=== PATIENT | female | born 1950 | race Caucasian/White ===

== ENCOUNTER 2016-05-24 14:10 | Outpatient (CLI) | payer MEDICARE ==
[2016-05-24 14:31] LABS: #Basophils 0.1 thou/uL (0.0-0.2); #Lymphocytes 1.4 thou/uL (1.20-3.40); #Monocytes 0.5 thou/uL (0.11-0.59); #Neutrophils 7.2 thou/uL (1.40-6.50); %Basophils 1.1 % (0.0-1.0); %Eosinophils 0.3 % (0.0-10.0); %Lymphocytes 15.3 % (21.0-51.0); %Monocytes 5.8 % (0.0-10.0); %Neutrophils 77.5 % (42.0-75.0); Hemoglobin 13.9 g/dL (12.0-16.0); Mean Corpuscular HGB CONC 34.4 g/dL (32.0-36.0); Mean Platelet Volume 8.2 fL (7.4-10.4); Platelet Count 278 thou/uL (130-400); RBC Distribution Width 12.3 % (11.5-14.5); Red Blood Cell (RBC) Count 4.21 mill/uL (4.20-5.40); White Blood Cell (WBC) Count 9.3 thou/uL (4.8-10.8)
[2016-05-24 14:44] LABS: Hemoglobin A1c 5.5 % (4.0-6.0)
[2016-05-24 14:49] LABS: ALT (SGPT) 16 U/L (0-55); AST (SGOT) 16 U/L (5-34); Albumin 4.1 g/dL (3.4-4.8); Alkaline Phosphatase 99 U/L (40-150); Anion Gap 20 mmol/L (10-20); BUN (Urea Nitrogen) 7 mg/dL (9.8-20.1); Bilirubin, Total 0.3 mg/dL (0.2-1.2); Calc. Creatinine Clearance 0 mL/min (70-130); Calcium 8.8 mg/dL (7.8-10.44); Carbon Dioxide 22 mmol/L (23-31); Chloride 96 mmol/L (98-107); Estimated GFR-MDRD 77; Glucose 141 mg/dL (80-115); Lipase 13 U/L (8-78); Potassium 4.1 mmol/L (3.5-5.1); Protein, Total 7.1 g/dL (5.8-8.1); Sodium 134 mmol/L (136-145)
== END 2016-05-24 14:11 | disposition home or self-care (01) ==
LOC: MADLABBHPM 14:10
PROVIDERS: ATTEND Family Medicine
DX: K86.1 Other chronic pancreatitis (principal); K86.81 Exocrine pancreatic insufficiency; I10 Essential (primary) hypertension; R73.01 Impaired fasting glucose
CPT/HCPCS: 36415; 80053; 83036; 83690; 84443; 85025

== ENCOUNTER 2016-06-29 15:25 | Emergency (ER) | payer MEDICARE, OTHER ==
--- NOTE | 2016-06-29 16:20 | RAD ---
TWO VIEWS OF THE RIGHT HUMERUS: Date: 06-29-16 Comparison: None. History: Arm pain. FINDINGS: There is mild degenerative change of the right AC joint. There is no displaced fracture. On the la teral view there is a small calcific density superior and lateral to the humeral head which may sign lisa calcific tendinosis. IMPRESSION: No acute fracture seen. POS: [facility]
== END 2016-06-29 17:00 | disposition home or self-care (01) ==
LOC: MADERS 15:25
DX: M79.621 Pain in right upper arm (principal); F17.210 Nicotine dependence, cigarettes, uncomplicated; Z79.899 Other long term (current) drug therapy

== ENCOUNTER 2016-09-29 13:17 | Emergency (ER) | payer MEDICARE ==
[~2016-09-29 13:17] MED LIST: Sodium Chloride 0.9% 1,000 ML BAG ONE
[2016-09-29 14:07] LABS: #Basophils 0.1 thou/uL (0.0-0.2); #Lymphocytes 1.2 thou/uL (1.20-3.40); #Monocytes 0.5 thou/uL (0.11-0.59); #Neutrophils 11.6 thou/uL (1.40-6.50); %Basophils 0.5 % (0.0-1.0); %Eosinophils 0.1 % (0.0-10.0); %Monocytes 3.8 % (0.0-10.0); %Neutrophils 86.7 % (42.0-75.0); Mean Corpuscular HGB CONC 35.1 g/dL (32.0-36.0); Mean Corpuscular Hemoglobin 32.9 pg (27.0-31.0); Mean Corpuscular Volume 93.7 fl (81.0-99.0); Mean Platelet Volume 9.2 fL (7.4-10.4); Platelet Count 206 thou/uL (130-400); RBC Distribution Width 12.8 % (11.5-14.5); Red Blood Cell (RBC) Count 4.26 mill/uL (4.20-5.40); White Blood Cell (WBC) Count 13.4 thou/uL (4.8-10.8)
[2016-09-29] MEDS ORDERED: Ondansetron HCl/PF 4 MG/2 ML Vial ONE (14:07)
[2016-09-29] MEDS ORDERED: Morphine Sulfate 2 MG/ML SYRINGE ONE (14:07)
[2016-09-29 14:25] LABS: ALT (SGPT) 20 U/L (8-55); AST (SGOT) 18 U/L (5-34); Albumin 3.8 g/dL (3.4-4.8); Alkaline Phosphatase 113 U/L (40-150); Anion Gap 16 mmol/L (10-20); BUN (Urea Nitrogen) 7 mg/dL (9.8-20.1); Bilirubin, Total 0.3 mg/dL (0.2-1.2); Calc. Creatinine Clearance 0 mL/min (70-130); Calcium 8.6 mg/dL (7.8-10.44); Carbon Dioxide 24 mmol/L (23-31); Chloride 95 mmol/L (98-107); Estimated GFR-MDRD Greater than 90; Globulin 2.8 g/dL (2.4-3.5); Glucose 181 mg/dL (80-115); Lipase 793 U/L (8-78); Potassium 3.8 mmol/L (3.5-5.1); Protein, Total 6.6 g/dL (6.0-8.3); Sodium 131 mmol/L (136-145)
--- NOTE | 2016-09-29 15:00 | RAD ---
CHEST ONE VIEW AND ABDOMEN TWO VIEWS: HISTORY: Nausea and vomiting. FINDINGS/IMPRESSION: The heart size is borderline. There is elevation of the right hemidiaphragm. No confluent areas of consolidation, pneumothorax, gurvinder pleural edema, or pleural effusions are seen. No free air or fl uid levels are identified. A non-obstructive bowel gas pattern is present. There are degenerative changes in the spine. No suspicious calcifications are identified. POS: [facility]
[2016-09-29 15:25] LABS: Bilirubin Negative (Negative); Blood, Urine Trace (Negative); Clarity Hazy (Clear); Glucose, Urine (Dipstick) Negative (Negative); Icto Negative (Negative); Leukocyte Negative (Negative); Nitrite Negative (Negative); Protein, Urine (Dipstick) Negative (Neg-Trace)
[2016-09-29 15:26] LABS: Bacteria/HPF 2+ HPF (None Seen); RBC/HPF 0-3 HPF (0-3); WBC/HPF 0-3 HPF (0-3)
== END 2016-09-29 15:24 | disposition short-term general hospital (02) ==
LOC: MADERS 13:17
DX: K85.90 Acute pancreatitis without necrosis or infection, unspecified (principal); K86.1 Other chronic pancreatitis; F17.210 Nicotine dependence, cigarettes, uncomplicated; Z79.899 Other long term (current) drug therapy
CPT/HCPCS: 36415; 74022; 80053; 81003; 81015; 83690; 85025; 93005; 96361; 96374; 96375; J1170; J2270; J2405; J7050

== ENCOUNTER 2016-10-13 07:09 | Emergency (ER) | payer MEDICARE ==
--- NOTE | 2016-10-13 08:11 | RAD ---
FRONTAL VIEW CHEST: INDICATION: Dyspnea. FINDINGS: There is enlargement of the cardiac silhouette and prominence of the pulmonary vasculature with bila teral pulmonary edema. Mild left pleural fluid is not excluded. No discrete pneumothorax. IMPRESSION: Evidence of decompensated congestive heart failure. Recommend followup to resolution. POS: [facility]
[2016-10-13] MEDS ORDERED: Ondansetron HCl/PF 4 MG/2 ML Vial ONE (08:23)
[2016-10-13] MEDS ORDERED: Furosemide 40 MG/4 ML VIAL ONE (08:23)
[2016-10-13] MEDS ORDERED: Ketorolac Tromethamine 30 MG/ML VIAL ONE (08:23)
[2016-10-13] MEDS ORDERED: Fentanyl 100 MCG/2 ML VIAL ONE (08:23)
[2016-10-13] MEDS ORDERED: Furosemide 20 MG/2 ML VIAL ONE (08:23)
[2016-10-13 08:34] LABS: #Eosinphils 0.2 thou/uL (0.0-0.7); #Lymphocytes 1.1 thou/uL (1.20-3.40); #Monocytes 0.6 thou/uL (0.11-0.59); #Neutrophils 5.3 thou/uL (1.40-6.50); %Basophils 0.3 % (0.0-1.0); %Eosinophils 2.5 % (0.0-10.0); %Lymphocytes 14.9 % (21.0-51.0); %Monocytes 8.8 % (0.0-10.0); %Neutrophils 73.5 % (42.0-75.0); Hemoglobin 9.7 g/dL (12.0-16.0); Mean Corpuscular HGB CONC 31.9 g/dL (32.0-36.0); Mean Corpuscular Hemoglobin 30.1 pg (27.0-31.0); Mean Corpuscular Volume 94.1 fl (81.0-99.0); Mean Platelet Volume 7.2 fL (7.4-10.4); Platelet Count 364 thou/uL (130-400); RBC Distribution Width 13.5 % (11.5-14.5); Red Blood Cell (RBC) Count 3.24 mill/uL (4.20-5.40); White Blood Cell (WBC) Count 7.2 thou/uL (4.8-10.8)
[2016-10-13 08:55] LABS: Anion Gap 15 mmol/L (10-20); BUN (Urea Nitrogen) 6 mg/dL (9.8-20.1); Calc. Creatinine Clearance 0 mL/min (70-130); Calcium 8.3 mg/dL (7.8-10.44); Carbon Dioxide 33 mmol/L (23-31); Chloride 96 mmol/L (98-107); Estimated GFR-MDRD Greater than 90; Glucose 117 mg/dL (80-115); Sodium 141 mmol/L (136-145)
[2016-10-13 08:59] LABS: Troponin I 0.014 ng/mL (< 0.028)
[2016-10-13 10:12] LABS: Potassium 2.9 mmol/L (3.5-5.1)
== END 2016-10-13 10:00 | disposition short-term general hospital (02) ==
LOC: MADERS 07:09
DX: I50.9 Heart failure, unspecified (principal); K85.90 Acute pancreatitis without necrosis or infection, unspecified; F17.210 Nicotine dependence, cigarettes, uncomplicated; Z79.899 Other long term (current) drug therapy
CPT/HCPCS: 51702; 71010; 80048; 82553; 83880; 84484; 85025; 93005; 94760; 96374; 96375; J1885; J1940; J2405; J3010

== ENCOUNTER 2016-10-20 09:09 | Outpatient (CLI) | payer MEDICARE ==
[2016-10-20 09:45] LABS: Clarity Hazy (Clear); Leukocyte Small (Negative); Nitrite Negative (Negative); Protein, Urine (Dipstick) 100 mg/dL (Neg-Trace); pH, Urine 5.5 (5.0-9.0)
[2016-10-20 09:46] LABS: Bilirubin Negative (Negative); Blood, Urine Moderate (Negative); Glucose, Urine (Dipstick) Negative (Negative); Urobilinogen 0.2 mg/dL (0.2-1.0)
[2016-10-20 09:51] LABS: Bacteria/HPF 1+ HPF (None Seen); WBC/HPF 21-50 HPF (0-3)
== END 2016-10-20 09:10 | disposition home or self-care (01) ==
LOC: MADLABBHPM 09:09
PROVIDERS: ATTEND Family Medicine
DX: R82.90 Unspecified abnormal findings in urine (principal)
CPT/HCPCS: 36415; 81001; 87077; 87086; 87186

== ENCOUNTER 2016-10-26 07:18 | Outpatient (CLI) | payer MEDICARE ==
[2016-10-26 07:55] LABS: #Basophils 0.1 thou/uL (0.0-0.2); #Eosinphils 0.4 thou/uL (0.0-0.7); #Lymphocytes 2.1 thou/uL (1.20-3.40); #Monocytes 0.8 thou/uL (0.11-0.59); #Neutrophils 5.1 thou/uL (1.40-6.50); %Basophils 1.1 % (0.0-1.0); %Eosinophils 4.5 % (0.0-10.0); %Monocytes 9.3 % (0.0-10.0); %Neutrophils 60.1 % (42.0-75.0); Hemoglobin 11.1 g/dL (12.0-16.0); Mean Corpuscular HGB CONC 32.2 g/dL (32.0-36.0); Mean Corpuscular Hemoglobin 30.2 pg (27.0-31.0); Mean Corpuscular Volume 93.9 fl (81.0-99.0); Mean Platelet Volume 8.6 fL (7.4-10.4); Platelet Count 274 thou/uL (130-400); RBC Distribution Width 12.9 % (11.5-14.5); Red Blood Cell (RBC) Count 3.67 mill/uL (4.20-5.40); White Blood Cell (WBC) Count 8.5 thou/uL (4.8-10.8)
[2016-10-26 08:24] LABS: ALT (SGPT) 28 U/L (8-55); AST (SGOT) 22 U/L (5-34); Albumin 3.5 g/dL (3.4-4.8); Alkaline Phosphatase 75 U/L (40-150); Anion Gap 16 mmol/L (10-20); BUN (Urea Nitrogen) 13 mg/dL (9.8-20.1); Bilirubin, Total Less than 0.3 mg/dL (0.2-1.2); Calc. Creatinine Clearance 0 mL/min (70-130); Calcium 8.9 mg/dL (7.8-10.44); Carbon Dioxide 32 mmol/L (23-31); Chloride 93 mmol/L (98-107); Estimated GFR-MDRD 70; Globulin 3.3 g/dL (2.4-3.5); Glucose 121 mg/dL (80-115); Lipase 35 U/L (8-78); Potassium 3.8 mmol/L (3.5-5.1); Protein, Total 6.8 g/dL (6.0-8.3); Sodium 137 mmol/L (136-145)
== END 2016-10-26 07:19 | disposition home or self-care (01) ==
LOC: MADLAB 07:18
PROVIDERS: ATTEND Nurse Practitioner Family
DX: I50.30 Unspecified diastolic (congestive) heart failure (principal); K86.1 Other chronic pancreatitis
CPT/HCPCS: 36415; 80053; 82150; 83690; 85025

== ENCOUNTER 2019-12-06 17:33 | Emergency (ER) | payer MEDICARE ==
[~2019-12-06 17:33] MED LIST changes: +Iopamidol 370 76% 100 ML VIAL ONE; +Lactated Ringer's 1,000 ML BAG ONE; -Sodium Chloride 0.9% 1,000 ML BAG ONE
[2019-12-06 18:51] LABS: #Basophils 0.1 thou/uL (0.0-0.2); #Eosinphils 0.1 thou/uL (0.0-0.7); #Lymphocytes 1.6 thou/uL (1.20-3.40); #Monocytes 0.8 thou/uL (0.11-0.59); #Neutrophils 12.4 thou/uL (1.40-6.50); %Basophils 0.6 % (0.0-1.0); %Eosinophils 0.4 % (0.0-10.0); %Lymphocytes 10.7 % (21.0-51.0); %Monocytes 5.3 % (0.0-10.0); %Neutrophils 82.9 % (42.0-75.0); Hemoglobin 11.7 g/dL (12.0-16.0); Mean Corpuscular HGB CONC 30.3 g/dL (32.0-36.0); Mean Corpuscular Hemoglobin 25.9 pg (27.0-31.0); Mean Corpuscular Volume 85.4 fL (78.0-98.0); Mean Platelet Volume 10.2 fL (7.4-10.4); Platelet Count 336 thou/uL (130-400); RBC Distribution Width 15.5 % (11.5-14.5); Red Blood Cell (RBC) Count 4.51 mill/uL (4.20-5.40); White Blood Cell (WBC) Count 14.9 thou/uL (4.8-10.8)
[2019-12-06] MEDS ORDERED: Fentanyl 100 MCG/2 ML VIAL ONE (18:59)
[2019-12-06] MEDS ORDERED: Ondansetron PF 4 MG/2 ML Vial ONE (18:59)
[2019-12-06 19:11] LABS: ALT (SGPT) 25 U/L (8-55); AST (SGOT) 17 U/L (5-34); Alkaline Phosphatase 114 U/L (40-110); Anion Gap 17 mmol/L (10-20); BUN (Urea Nitrogen) 10 mg/dL (9.8-20.1); Bilirubin, Total 0.2 mg/dL (0.2-1.2); Calc. Creatinine Clearance 0 mL/min (70-130); Calcium 8.2 mg/dL (7.8-10.44); Carbon Dioxide 36 mmol/L (23-31); Estimated GFR-MDRD 73; Globulin 3.1 g/dL (2.4-3.5); Glucose 168 mg/dL (80-115); Lipase 168 U/L (8-78); Protein, Total 6.1 g/dL (6.0-8.3)
[2019-12-06 19:19] LABS: Chloride 85 mmol/L (98-107); Potassium 3.5 mmol/L (3.5-5.1); Sodium 134 mmol/L (136-145)
--- NOTE | 2019-12-06 20:12 | CT ---
CT ABDOMEN AND PELVIS WITH CONTRAST: 12/06/19 HISTORY: Abdominal pain. COMPARISON: CT 09/12/18. FINDINGS: Mild atelectasis lung bases. Old left posterior rib fractures. Nodular contour left lobe of the liver. There is a high density tablet appearing structure within the gastric lumen. Recommend correlation wi th recent ingestion. Although this could be metal as the Hounsfield unit measures up to 1300. There appears to be some prior postsurgical changes of the gastric antrum. Inflammatory response arou nd the second portion of the duodenum and pancreatic head. Prior gastrojejunostomy. Spleen is unremarkable. No hydronephrosis. Small nodule left adrenal gland is similar. Aortic contour is nonaneurysmal. No dilated loops or large or small bowel. The appendix is mildly distended. No acu te osseous abnormality. IMPRESSION: 1. Inflammatory stranding in the anterior pararenal space along the pancreatic head and lesser s ac. Findings can be seen with pancreatitis versus less likely duodenitis. 2. Prior gastrojejunostomy and gastric antrectomy. 3. Normal appendix. 4. No evidence for bowel obstruction. 5. Very hyperdense ovoid structure within the gastric lumen. Recommend correlation with recent i ngestion. This has greater attenuation than a calcium tablet would be expected to have. 6. Continued mildly distended appendix without periappendiceal inflammation. Appendiceal tip kirsten or cannot be excluded and is new from 2010. POS: [facility]
[2019-12-06] MEDS ORDERED: Piperacillin/Tazobactam 3.375 GM VIAL ONE (20:21)
[2019-12-06] MEDS ORDERED: Sodium Chloride 0.9% 100 ML ONE (20:22)
== END 2019-12-06 21:40 | disposition home or self-care (01) ==
LOC: MADERS 17:33
DX: K85.90 Acute pancreatitis without necrosis or infection, unspecified (principal); I11.0 Hypertensive heart disease with heart failure; I50.9 Heart failure, unspecified; F17.210 Nicotine dependence, cigarettes, uncomplicated; Z79.899 Other long term (current) drug therapy
CPT/HCPCS: 36415; 74177; 80053; 83605; 83690; 84484; 85025; 86140; 93005; 96361; 96365; 96375; J2405; J2543; J3010; J3490; J7120; Q9967

== ENCOUNTER 2019-12-14 16:48 | Emergency (ER) | payer MEDICARE ==
[2019-12-14] MEDS ORDERED: Sodium Chloride 0.9% 1,000 ML ONE (17:23)
[2019-12-14] MEDS ORDERED: Pantoprazole 40 MG VIAL ONE (17:23)
[2019-12-14] MEDS ORDERED: Promethazine HCl 25 MG/ML VIAL ONE (17:23)
--- NOTE | 2019-12-14 18:05 | RAD ---
EXAM: CHEST ONE VIEW HISTORY: Chest pain COMPARISON: 10/14/2016 FINDINGS: Cardiac silhouette is within normal limits. There is mild increase in perihilar interstitial densitie s when compared to the prior exam. No consolidation or pleural fluid is seen. There is increased density overlying the right hemithorax most likely related to patient's overlying breast prosthesis. Postoperative changes left proximal humerus and right humeral head are again seen. Remote left-sided rib fractures are seen. IMPRESSION: Mild increase in perihilar interstitial densities which could be related to mild pulmonary edema or i nfectious process.
--- NOTE | 2019-12-14 18:11 | RAD ---
EXAM: XR Abdomen 1 View/KUB PROVIDED CLINICAL HISTORY: Abdominal pain. COMPARISON: 09/29/2016 FINDINGS: Bowel gas pattern is nonspecific with gaseous distention of portions of the colon as well as stomach and loops of small bowel. There is an oval-shaped radiopaque density overlying the right iliac bone. This has a similar appearance to a radiopaque density seen in the stomach on prior CT abdomen o n 12/06/2019 probably related to ingested material within bowel. The exact etiology for this density is uncertain. Phlebolith again overlies the right hemipelvis. Degenerative changes are again noted in the spine. IMPRESSION: 1. Nonspecific bowel gas pattern. 2. Oval-shaped radiopaque density overlying right iliac bone. An oval-shaped radiopaque density was s een in the stomach on prior CT abdomen on 12/06/2019. This was mentioned on the prior CT examination, and on the prior exam, this oval-shaped density demonstrated a more hyperdense appearanc e than expected for calcium tablet. Clinical correlation suggested. This finding is likely related to further migration of the previously seen radiopaque density within the bowel.
[2019-12-14 18:14] LABS: Hemoglobin 10.3 g/dL (12.0-16.0); Mean Corpuscular HGB CONC 30.7 g/dL (32.0-36.0); Mean Corpuscular Hemoglobin 25.9 pg (27.0-31.0); Mean Corpuscular Volume 84.4 fL (78.0-98.0); Red Blood Cell (RBC) Count 3.99 mill/uL (4.20-5.40); White Blood Cell (WBC) Count 10.6 thou/uL (4.8-10.8)
[2019-12-14 18:15] LABS: #Basophils 0.1 thou/uL (0.0-0.2); #Eosinphils 0.1 thou/uL (0.0-0.7); #Lymphocytes 1.7 thou/uL (1.20-3.40); #Monocytes 0.9 thou/uL (0.11-0.59); #Neutrophils 7.9 thou/uL (1.40-6.50); %Basophils 0.5 % (0.0-1.0); %Lymphocytes 15.7 % (21.0-51.0); %Monocytes 8.2 % (0.0-10.0); %Neutrophils 74.5 % (42.0-75.0); Mean Platelet Volume 8.2 fL (7.4-10.4); Platelet Count 315 thou/uL (130-400)
[2019-12-14 18:33] LABS: ALT (SGPT) 28 U/L (8-55); AST (SGOT) 22 U/L (5-34); Albumin 2.8 g/dL (3.4-4.8); Alkaline Phosphatase 108 U/L (40-110); Anion Gap 13 mmol/L (10-20); BUN (Urea Nitrogen) 5 mg/dL (9.8-20.1); Bilirubin, Total 0.2 mg/dL (0.2-1.2); Calc. Creatinine Clearance 0 mL/min (70-130); Calcium 7.6 mg/dL (7.8-10.44); Carbon Dioxide 29 mmol/L (23-31); Chloride 101 mmol/L (98-107); Estimated GFR-MDRD 85; Glucose 97 mg/dL (80-115); Potassium 3.7 mmol/L (3.5-5.1); Protein, Total 5.8 g/dL (6.0-8.3); Sodium 139 mmol/L (136-145)
[2019-12-14 18:34] LABS: CRP (Inflammatory) 2.17 mg/dL (= or < 0.5)
== END 2019-12-14 19:28 | disposition home or self-care (01) ==
LOC: MADERS 16:48
DX: K86.1 Other chronic pancreatitis (principal); R11.2 Nausea with vomiting, unspecified; K59.00 Constipation, unspecified; I11.0 Hypertensive heart disease with heart failure; I50.9 Heart failure, unspecified; F17.210 Nicotine dependence, cigarettes, uncomplicated; Z79.51 Long term (current) use of inhaled steroids; Z79.899 Other long term (current) drug therapy
CPT/HCPCS: 36415; 71045; 74018; 80053; 82150; 82550; 83690; 84484; 85025; 86140; 96365; 96375; C9113; J2550; J7050

== ENCOUNTER 2019-12-19 18:02 | Emergency (ER) | payer MEDICARE ==
[2019-12-19 18:20] LABS: Bilirubin Negative (Negative); Blood, Urine Negative (Negative); Clarity Clear (Clear); Glucose, Urine (Dipstick) Negative (Negative); Ketone, Urine Negative (Negative); Leukocyte Negative (Negative); Nitrite Negative (Negative); Protein, Urine (Dipstick) Negative (Neg-Trace); Urobilinogen 0.2 mg/dL (Less than 2); pH, Urine 6.5 (5.0-9.0)
[2019-12-19] MEDS ORDERED: Sodium Chloride 0.9% 500 ML ONE (19:34)
[2019-12-19 19:43] LABS: #Basophils 0.1 thou/uL (0.0-0.2); #Eosinphils 0.2 thou/uL (0.0-0.7); #Lymphocytes 2.2 thou/uL (1.20-3.40); #Monocytes 0.8 thou/uL (0.11-0.59); #Neutrophils 10.1 thou/uL (1.40-6.50); %Basophils 0.7 % (0.0-1.0); %Eosinophils 1.6 % (0.0-10.0); %Lymphocytes 16.6 % (21.0-51.0); %Monocytes 5.8 % (0.0-10.0); %Neutrophils 75.3 % (42.0-75.0); Hemoglobin 11.6 g/dL (12.0-16.0); Mean Corpuscular HGB CONC 30.6 g/dL (32.0-36.0); Mean Corpuscular Hemoglobin 25.7 pg (27.0-31.0); Mean Corpuscular Volume 83.8 fL (78.0-98.0); Mean Platelet Volume 8.4 fL (7.4-10.4); Platelet Count 412 thou/uL (130-400); RBC Distribution Width 15.1 % (11.5-14.5); White Blood Cell (WBC) Count 13.4 thou/uL (4.8-10.8)
[2019-12-19 19:56] LABS: ALT (SGPT) 33 U/L (8-55); AST (SGOT) 24 U/L (5-34); Albumin 3.2 g/dL (3.4-4.8); Alkaline Phosphatase 134 U/L (40-110); Anion Gap 16 mmol/L (10-20); BUN (Urea Nitrogen) 7 mg/dL (9.8-20.1); Bilirubin, Total 0.2 mg/dL (0.2-1.2); Calc. Creatinine Clearance 0 mL/min (70-130); Calcium 8.3 mg/dL (7.8-10.44); Carbon Dioxide 30 mmol/L (23-31); Chloride 95 mmol/L (98-107); Estimated GFR-MDRD 75; Globulin 3.6 g/dL (2.4-3.5); Glucose 126 mg/dL (80-115); Lipase 31 U/L (8-78); Potassium 3.1 mmol/L (3.5-5.1); Protein, Total 6.8 g/dL (6.0-8.3); Sodium 138 mmol/L (136-145)
[2019-12-19] MEDS ORDERED: Morphine 4 MG/ML VIAL ONE (20:18)
--- NOTE | 2019-12-19 20:18 | CT ---
CT ABDOMEN AND PELVIS PERFORMED WITHOUT CONTRAST ENHANCEMENT: Date: 12/19/2019 HISTORY: Bilateral flank pain. Pain with urination. COMPARISON: 12/06/2019 exam. FINDINGS: CT ABDOMEN: A right breast prosthesis is partially visualized. The lung bases are clear. There are marked diffuse fatty changes of the liver, which measures 18.0 cm in length. The spleen and pancreas regions are unremarkable. Gallbladder appears to have been removed. The stomach is distende d with fluid. Postoperative changes which appear to be related to a Billroth type procedure are prese nt. There is a gastrojejunostomy present. The spleen is unremarkable. Pancreas is mildly atrophic. Th e inflammatory change seen adjacent to the pancreatic head and extending anteriorly from this level h as largely resolved, although there now appears to be a fluid density collection which I do not belie ve is bowel in this region. This could be a pseudocyst which has developed related to pancreatitis. I t is somewhat oblong in shape with a maximum length of 4.8 cm. It is in the location of the previousl y noted inflammatory change now a more defined collection. Right and left adrenal glands, and right and left kidneys are normal in size. No significant periaort ic or mesenteric adenopathy. CT PELVIS: The appendix appears somewhat less distended than it did on the prior examination. There is still beto e prominence to the tip of the appendix, somewhat nonspecific. An appendiceal tip tumor is not totall y excluded as a possibility, but not felt to be very likely. No pelvic lymphadenopathy or mass. IMPRESSION: 1. Fatty changes of the liver, which measures 18.0 cm in length, with a nodular surface contour to t he left lobe suggesting what may be some element of cirrhotic change. 2. Resolution of the inflammatory change which was seen near the pancreatic head and extending anter iorly from that level. There is now a more defined fluid density collection which I do not believe is a bowel loop. This may represent a manifestation of a pseudocyst related to previous episode of panc reatitis. There is evidence of a gastrojejunostomy and what appears to be a Billroth type procedure. 3. Some decreased prominence to the appendix. The appendix tip is still slightly dilated, but less p rominent than on the prior exam. POS: [facility]
== END 2019-12-19 20:57 | disposition short-term general hospital (02) ==
LOC: MADERS 18:02
DX: K86.3 Pseudocyst of pancreas (principal); D72.829 Elevated white blood cell count, unspecified; I50.9 Heart failure, unspecified; I11.0 Hypertensive heart disease with heart failure; F17.210 Nicotine dependence, cigarettes, uncomplicated; Z79.899 Other long term (current) drug therapy
CPT/HCPCS: 74176; 80053; 83605; 83690; 85025; 96361; 96374; J2270; J7030

== ENCOUNTER 2019-12-26 07:41 | Outpatient (CLI) | payer MEDICARE ==
[2019-12-26 08:08] LABS: Bilirubin Negative (Negative); Blood, Urine Negative (Negative); Clarity Clear (Clear); Glucose, Urine (Dipstick) Negative (Negative); Ketone, Urine Negative (Negative); Leukocyte Trace (Negative); Nitrite Negative (Negative); Protein, Urine (Dipstick) Negative (Neg-Trace); Specific Gravity, Urine 1.015 (1.005-1.030); Urobilinogen 0.2 mg/dL (Less than 2)
[2019-12-26 08:13] LABS: RBC/HPF 0-3 HPF (0-3); WBC/HPF 0-3 HPF (0-3)
[2019-12-26 08:14] LABS: Bacteria/HPF Rare-Few HPF (None Seen); Squamous Epithelial 0-3 HPF (0-3)
== END 2019-12-26 07:42 | disposition home or self-care (01) ==
LOC: MADLAB 07:41
PROVIDERS: ATTEND Family Medicine
DX: R30.0 Dysuria (principal)
CPT/HCPCS: 81001

== ENCOUNTER 2020-01-20 15:35 | Outpatient (CLI) | payer MEDICARE ==
[~2020-01-20 15:35] MED LIST changes: -Lactated Ringer's 1,000 ML BAG ONE
[2020-01-20 16:33] LABS: INR-International Normal Ratio 0.9; Prothrombin Time 11.9 sec (12.0-14.7)
[2020-01-20 16:50] LABS: ALT (SGPT) 40 U/L (8-55); AST (SGOT) 38 U/L (5-34); Albumin 3.2 g/dL (3.4-4.8); Alkaline Phosphatase 175 U/L (40-110); Anion Gap 16 mmol/L (10-20); BUN (Urea Nitrogen) 6 mg/dL (9.8-20.1); Bilirubin, Total 0.2 mg/dL (0.2-1.2); Calc. Creatinine Clearance 0 mL/min (70-130); Calcium 8.4 mg/dL (7.8-10.44); Carbon Dioxide 32 mmol/L (23-31); Chloride 96 mmol/L (98-107); Globulin 3.3 g/dL (2.4-3.5); Glucose 100 mg/dL (80-115); Protein, Total 6.5 g/dL (6.0-8.3); Sodium 140 mmol/L (136-145)
[2020-01-20 17:30] LABS: Band 1 % (5-11); Eosinophils 4 % (0-10); Hemoglobin 12.7 g/dL (12.0-16.0); Lymphocytes 11 % (21-51); MDiff Complete? YES; Mean Corpuscular HGB CONC 30.9 g/dL (32.0-36.0); Mean Corpuscular Hemoglobin 26.7 pg (27.0-31.0); Mean Corpuscular Volume 86.4 fL (78.0-98.0); Mean Platelet Volume 9.4 fL (7.4-10.4); Monocytes 6 % (0-10); Platelet Count 326 thou/uL (130-400); Platelet Morphology Comment Appears Adequate; RBC Distribution Width 16.7 % (11.5-14.5); RBC Morphology Normal; Reactive Lymphocytes 18 % (0-10); Red Blood Cell (RBC) Count 4.74 mill/uL (4.20-5.40); White Blood Cell (WBC) Count 9.8 thou/uL (4.8-10.8)
--- NOTE | 2020-01-20 17:50 | CT ---
CT of theabdomen and pelvis: 01/20/2020 COMPARISON:12/06/2019, 12/19/2019 HISTORY:Reevaluate pancreatic pseudocyst TECHNIQUE: Serial axial CT imaging at5 mm intervals from thelung bases through pubic symphysis with I V and oral contrast. Coronal and sagittal reformatted imaging obtained. Findings:Right breast implant is visualized. The imaged lung bases demonstrate no acute findings. No free intraperitoneal air or fluid is seen. The patient appears status post hysterectomy. The liver is diffusely hypodense, evidence of steatosis. The gallbladder is nonvisualized suggesting surgical a bsence. The spleen, pancreas, adrenal glands, and kidneys demonstrate no acute findings. Stable subcentimeter bilateral adrenal nodules are present. Stable subcentimeter right renal hypodensities a re noted, too small to characterize. There is a lobulated hypodense lesion within the right upper quadrant which is medial to the gastric antrum and anterior to the horizontal portion of the duodenum which measures approximately 5.1 cm in greatest AP dimension, approximately 4.4 cm in greatest craniocaudal dimension, and up to approxim ately 2.1 cm in transverse dimension. This is consistent with the provided history of pancreatic pseudocyst. Hypodensity in this region is definitely improved when compared to 12/06/2019 and appears slightly decreased in size when compared to 12/19/2019 examination. There is no evidence for bowel obstruction or bowel inflammatory change. Mild stable wall prominence of the appendix noted. There are scattered atherosclerotic calcifications involving the abdominal aorta and its branches. No lymphadenopathy is seen within the abdomen or pelvis. No acute osseous abn ormality is noted. Impression:Lobulated hypodense lesion within the right upper quadrant consistent with the provided hi story of pancreatic pseudocyst measuring up to approximately 4.4 x 2.1 x 5.1 cm, slightly less conspicuous than on the 12/19/2019 exam. Continued follow-up advised.
[2020-01-20 22:20] LABS: Iron 52 ug/dL (50-170); Iron Binding Capacity, Total 295 mcg/dL (265-497)
[2020-01-20 22:27] LABS: Ferritin 57.61 ng/mL (10-291)
[2020-01-21 00:27] LABS: HBSAg Index 0.14 S/CO (0-0.99); Hep B Surf Ag Non-Reactive S/CO (NonReactive); Hep C IgG Ab Non-Reactive (NonReactive); Hep C Index 0.17 S/CO (0-0.79)
[2020-01-21 00:57] LABS: HBSAB Concentration 134.13 mIU/mL; Hep B Surf AB Reactive (NonReactive)
[2020-01-21 11:58] LABS: Follow-up Chemistry Comp? YES; Follow-up Result - Chemistry REPORT FAXED
[2020-01-22 14:53] LABS: EliA Vaculitis New Method **** NEW METHOD ****; Mitochondrial Ab 1.4 U/mL (<4 Negative)
[2020-01-24 14:14] LABS: Smooth Muscle Total ABS 11 Units (0-19)
== END 2020-01-20 15:36 | disposition home or self-care (01) ==
LOC: MADLAB 15:35 → MADCT 15:36
PROVIDERS: ATTEND Internal Medicine Gastroenterology
DX: K86.1 Other chronic pancreatitis (principal); K74.60 Unspecified cirrhosis of liver; K86.3 Pseudocyst of pancreas; J44.9 Chronic obstructive pulmonary disease, unspecified; R11.2 Nausea with vomiting, unspecified; R93.5 Abnormal findings on diagnostic imaging of other abdominal regions, including retroperitoneum; Z87.19 Personal history of other diseases of the digestive system
CPT/HCPCS: 36415; 74177; 80053; 82105; 82728; 83516; 83540; 83550; 85025; 85610; 86706; 86708; 86803; 87340; Q9967

== ENCOUNTER 2020-02-19 17:35 | Emergency (ER) | payer MEDICARE ==
[~2020-02-19 17:35] MED LIST changes: -Iopamidol 370 76% 100 ML VIAL ONE; +Iopamidol 370 76% 125 ML VIAL FS ONE
[2020-02-19 18:29] LABS: #Basophils 0.1 thou/uL (0.0-0.2); #Eosinphils 0.1 thou/uL (0.0-0.7); #Lymphocytes 2.6 thou/uL (1.20-3.40); #Monocytes 0.9 thou/uL (0.11-0.59); #Neutrophils 12.4 thou/uL (1.40-6.50); %Basophils 0.6 % (0.0-1.0); %Eosinophils 0.8 % (0.0-10.0); %Lymphocytes 16.3 % (21.0-51.0); %Monocytes 5.8 % (0.0-10.0); %Neutrophils 76.5 % (42.0-75.0); Hemoglobin 13.7 g/dL (12.0-16.0); Mean Corpuscular HGB CONC 30.7 g/dL (32.0-36.0); Mean Corpuscular Hemoglobin 26.9 pg (27.0-31.0); Mean Corpuscular Volume 87.7 fL (78.0-98.0); Mean Platelet Volume 9.9 fL (7.4-10.4); Platelet Count 372 thou/uL (130-400); RBC Distribution Width 15.2 % (11.5-14.5); White Blood Cell (WBC) Count 16.2 thou/uL (4.8-10.8)
[2020-02-19] MEDS ORDERED: Ondansetron PF 4 MG/2 ML Vial ONE (18:46)
[2020-02-19] MEDS ORDERED: Ketorolac Tromethamine 30 MG/ML VIAL ONE ×2 (18:46→21:10)
[2020-02-19] MEDS ORDERED: Sodium Chloride 0.9% 1,000 ML ONE (18:46)
[2020-02-19 18:49] LABS: ALT (SGPT) 46 U/L (8-55); AST (SGOT) 44 U/L (5-34); Albumin 3.8 g/dL (3.4-4.8); Alkaline Phosphatase 187 U/L (40-110); Anion Gap 19 mmol/L (10-20); BUN (Urea Nitrogen) 8 mg/dL (9.8-20.1); Bilirubin, Total 0.3 mg/dL (0.2-1.2); Calc. Creatinine Clearance 0 mL/min (70-130); Calcium 9.2 mg/dL (7.8-10.44); Carbon Dioxide 29 mmol/L (23-31); Chloride 93 mmol/L (98-107); Estimated GFR-MDRD 69; Glucose 152 mg/dL (80-115); Lipase 16 U/L (8-78); Potassium 3.8 mmol/L (3.5-5.1); Protein, Total 7.8 g/dL (6.0-8.3); Sodium 137 mmol/L (136-145)
[2020-02-19 19:54] LABS: Bilirubin Negative (Negative); Blood, Urine Negative (Negative); Clarity Clear (Clear); Glucose, Urine (Dipstick) Negative (Negative); Ketone, Urine Negative (Negative); Leukocyte Negative (Negative); Nitrite Negative (Negative); Protein, Urine (Dipstick) Negative (Neg-Trace); Specific Gravity, Urine 1.015 (1.005-1.030); Urobilinogen 0.2 mg/dL (Less than 2); pH, Urine 5.5 (5.0-9.0)
[2020-02-19] MEDS ORDERED: Piperacillin/Tazobactam 4.5 GM VIAL ONE (20:56)
[2020-02-19] MEDS ORDERED: Sodium Chloride 0.9% 100 ML ONE (20:56)
[2020-02-19] MEDS ORDERED: Sodium Chloride 0.9% 0 ML ONE (21:00)
--- NOTE | 2020-02-19 21:52 | CT ---
CT ABDOMEN PERFORMED WITH AND WITHOUT INTRAVENOUS CONTRAST ENHANCEMENT: 02/19/20 HISTORY: Abdominal pain. History of pancreatic pseudocyst. COMPARISON: CT examination of 01/20/20. Partial visualization of right breast prosthesis is present. The lung bases are clear. Old left sided rib fractures are present. There is diffuse fatty change of the liver which measures approximately 18 cm in length. The spleen i s within normal limits of size. Pancreas region shows no evidence of any mass. Fluid density collecti on which was seen anterior to the pancreatic head region is smaller as compared to the prior examinat ion and measures approximately 5.1 cm in length and now measures approximately 4.1 cm. It is also dec reased in AP dimension. Right and left adrenal glands are normal in appearance. Right and left kidneys are normal in size. Sm all hypodensities involving the right kidney are compatible with small cysts. There is no significant periaortic or mesenteric adenopathy. The patient has undergone a gastrojejunostomy with a Billroth type procedure. The proximal small rony l loops are dilated. There is transition to nondilated more distal small bowel. Changes are compatibl e with a partial small bowel obstruction. Changes are probably related to adhesions related to surger y. There is a moderate amount of stool present within the colon. the visualized portion of the append ix shows no inflammatory change. IMPRESSION: 1. Patient is status post a gastrojejunostomy with a Billroth type procedure. There is dilatatio n of the proximal small bowel loops with a transition to nondilated more distal small bowel. This is compatible with a partial small bowel obstruction probably on the basis of adhesions related to surge ry. 2. Decreased size of the pancreatic pseudocyst located anterior to the pancreatic head. 3. Diffuse fatty change of the liver which is mildly enlarged. POS: [facility] [place]
[2020-02-19 22:00] LABS: Lactic Acid 1.4 mmol/L (0.5-2.2)
[2020-02-19] MEDS ORDERED: Metoclopramide HCl 10 MG/2 ML VIAL ONE (22:47)
[2020-02-19] MEDS ORDERED: Morphine 4 MG/ML VIAL ONE (22:56)
[2020-02-19] MEDS ORDERED: Sodium Chloride 0.9% 250 ML 500 ML ONE (23:38)
== END 2020-02-19 23:15 | disposition short-term general hospital (02) ==
LOC: MADERS 17:35
DX: K56.609 Unspecified intestinal obstruction, unspecified as to partial versus complete obstruction (principal); J44.9 Chronic obstructive pulmonary disease, unspecified; I11.0 Hypertensive heart disease with heart failure; I50.9 Heart failure, unspecified; F31.9 Bipolar disorder, unspecified; F17.210 Nicotine dependence, cigarettes, uncomplicated
CPT/HCPCS: 36415; 74170; 80053; 81003; 82550; 83605; 83690; 84484; 85025; 93005; 94760; 96361; 96365; 96366; 96375; 96376; J1885; J2270; J2405; J2543; J2765; J3370; J3490; J7050; Q9967

== ENCOUNTER 2020-07-30 13:00 | Outpatient (CLI) | payer MEDICARE ==
[~2020-07-30 13:00] MED LIST changes: +Iopamidol 370 76% 100 ML VIAL ONE; -Iopamidol 370 76% 125 ML VIAL FS ONE
== END 2020-07-30 13:01 | disposition home or self-care (01) ==
LOC: MADCT 13:00
PROVIDERS: ATTEND Internal Medicine Gastroenterology
DX: K86.1 Other chronic pancreatitis (principal); K74.60 Unspecified cirrhosis of liver; K86.3 Pseudocyst of pancreas; J44.9 Chronic obstructive pulmonary disease, unspecified; R11.2 Nausea with vomiting, unspecified
CPT/HCPCS: 36415; 74177; 82565; Q9967

== ENCOUNTER 2020-11-16 13:03 | Outpatient (CLI) | payer MEDICARE ==
[2020-11-16] MEDS ORDERED: Iopamidol 370 76% 100 ML VIAL ONE (13:40)
== END 2020-11-16 13:04 | disposition home or self-care (01) ==
LOC: MADCT 13:03
PROVIDERS: ATTEND Family Medicine
DX: K86.1 Other chronic pancreatitis (principal)
CPT/HCPCS: 74177; Q9967

== ENCOUNTER 2021-03-17 05:23 | Emergency (ER) | payer MEDICARE ==
[2021-03-17 06:02] LABS: Bilirubin Small (Negative); Blood, Urine Negative (Negative); Clarity Clear (Clear); Glucose, Urine (Dipstick) Negative (Negative); Ketone, Urine Negative (Negative); Leukocyte Negative (Negative); Nitrite Negative (Negative); Protein, Urine (Dipstick) Trace mg/dL (Neg-Trace)
[2021-03-17 06:03] LABS: Specific Gravity, Urine 1.018 (1.002-1.036)
[2021-03-17 06:12] LABS: Amphetamine Not Detected (NotDetected); Barbiturates Screen Not Detected (NotDetected); Benzodiazepine Screen Detected (NotDetected); Cocaine Metabolite Screen Not Detected (NotDetected); Medtox Control Line Valid? VALID (VALID); Methadone Not Detected (NotDetected); Methamphetamine Not Detected (NotDetected); Opiate Screen Detected (NotDetected); Oxycodone Screen Not Detected (NotDetected); Phencyclidine (PCP) Not Detected (NotDetected); THC/Cannabinoid Screen Not Detected (NotDetected); Tricyclic Screen Not Detected (NotDetected)
[2021-03-17] MEDS ORDERED: Rocuronium Bromide 10 MG/ML (10ML VIAL) ONE ×2 (06:21→06:40)
[2021-03-17 06:31] LABS: #Basophils 0.1 thou/uL (0.0-0.2); #Lymphocytes 0.7 thou/uL (1.20-3.40); #Neutrophils 13.1 thou/uL (1.40-6.50); %Basophils 0.5 % (0.0-1.0); %Lymphocytes 4.7 % (21.0-51.0); %Monocytes 6.5 % (0.0-10.0); %Neutrophils 88.3 % (42.0-75.0); Mean Corpuscular HGB CONC 29.1 g/dL (32.0-36.0); Mean Corpuscular Volume 89.3 fL (78.0-98.0); Mean Platelet Volume 8.5 fL (7.4-10.4); Platelet Count 242 thou/uL (130-400); RBC Distribution Width 15.3 % (11.5-14.5); Red Blood Cell (RBC) Count 4.99 mill/uL (4.20-5.40); White Blood Cell (WBC) Count 14.9 thou/uL (4.8-10.8)
[2021-03-17 06:34] LABS: Acetaminophen Less than 6.0 mcg/mL (10.0-30.0); Alcohol Less than 10 mg/dL (Less than 10); Salicylate Less than 8.0 mg/dL (15.0-30.0)
[2021-03-17 06:38] LABS: ALT (SGPT) 47 U/L (8-55); AST (SGOT) 50 U/L (5-34); Albumin 3.7 g/dL (3.4-4.8); Alkaline Phosphatase 144 U/L (40-110); Anion Gap 22 mmol/L (10-20); BUN (Urea Nitrogen) 33 mg/dL (9.8-20.1); Bilirubin, Total 0.5 mg/dL (0.2-1.2); CK (CPK) 41 U/L (29-168); Calc. Creatinine Clearance 0 mL/min (70-130); Calcium 8.1 mg/dL (7.8-10.44); Carbon Dioxide 30 mmol/L (23-31); Chloride 91 mmol/L (98-107); Globulin 3.1 g/dL (2.4-3.5); Glucose 200 mg/dL (80-115); Potassium 5.9 mmol/L (3.5-5.1); Protein, Total 6.8 g/dL (5.8-8.1); Sodium 137 mmol/L (136-145)
[2021-03-17] MEDS ORDERED: Sodium Chloride 0.9% 100 ML BAG ONE (06:40)
[2021-03-17] MEDS ORDERED: Naloxone HCl 0.4 mg/ml Vial ONE (06:40)
[2021-03-17 06:45] LABS: SARS-CoV-2 NAA Rapid Test Not Detected (NotDetected)
[2021-03-17] MEDS ORDERED: Pantoprazole 40 MG VIAL ONE (06:47)
[2021-03-17] MEDS ORDERED: Cefepime 2 GM VIAL ONE (06:49)
[2021-03-17] MEDS ORDERED: Furosemide 40 MG/4 ML VIAL ONE (06:49)
[2021-03-17 06:52] LABS: Anisocytosis SLIGHT = 6-15 cells (100X) (0-5/hpf); Platelet Morphology Comment Appears Adequate
== END 2021-03-17 07:19 | disposition short-term general hospital (02) ==
LOC: MADERS 05:23
DX: T40.601A Poisoning by unspecified narcotics, accidental (unintentional), initial encounter (principal); R41.82 Altered mental status, unspecified; J96.90 Respiratory failure, unspecified, unspecified whether with hypoxia or hypercapnia; J44.9 Chronic obstructive pulmonary disease, unspecified; Z20.822 Contact with and (suspected) exposure to COVID-19; I11.0 Hypertensive heart disease with heart failure; I50.9 Heart failure, unspecified; F17.210 Nicotine dependence, cigarettes, uncomplicated; Z79.899 Other long term (current) drug therapy
CPT/HCPCS: 0240U; 31500; 51702; 71045; 80053; 80306; 80307; 81003; 82550; 83605; 83880; 84443; 84484; 85025; 86140; 87040; 87086; 93005; 96365; 96375; C9113; J0692; J1940; J2310; J3490; J7620

== ENCOUNTER 2021-05-24 11:50 | Emergency (ER) | payer MEDICARE ==
[2021-05-24] MEDS ORDERED: methylPREDNISolone Sod Succ/PF 125 MG/2 ML VIAL ONE (12:29)
[2021-05-24 12:36] LABS: Base Excess-Venous 2.4 mmol/L (-2.0 to 3.0); Bicarbonate (HCO3v) 35.9 mmol/L (22.0-28.0); CO2 Tension (PvCO2) 112.9 mmHg (42.0-51.0); Calcium, Ionized 1.13 mmol/L (1.15-1.33); Chloride 98 mmol/L (98-107); Hemoglobin - Calc 14.3 g/dL (12.0-16.0); Potassium 5.6 mmol/L (3.5-5.1); Sodium 139 mmol/L (138-145); T. Carbon Dioxide 39.4 mmol/L (22.0-28.0); vO2 Saturation-calc 94.9 % (60.0-85.0)
[2021-05-24 12:39] LABS: Anisocytosis SLIGHT = 6-15 cells (100X) (0-5/hpf); Band 2 % (5-11); Hemoglobin 11.7 g/dL (12.0-16.0); Lymphocytes 3 % (21-51); MDiff Complete? YES; Mean Corpuscular HGB CONC 29.9 g/dL (32.0-36.0); Mean Corpuscular Hemoglobin 26.5 pg (27.0-31.0); Mean Corpuscular Volume 88.7 fL (78.0-98.0); Mean Platelet Volume 8.3 fL (7.4-10.4); Monocytes 2 % (0-10); Neutrophil 93 % (42-75); Ovalocytes SLIGHT = 2-5 cells (100X) (0-1/hpf); Platelet Count 387 thou/uL (130-400); Poikilocytosis SLIGHT = 6-15 cells (100X) (0-5/hpf); RBC Distribution Width 14.6 % (11.5-14.5); Red Blood Cell (RBC) Count 4.42 mill/uL (4.20-5.40); Toxic Granulation SLIGHT
[2021-05-24 12:45] LABS: ALT (SGPT) 38 U/L (8-55); AST (SGOT) 33 U/L (5-34); Albumin 3.8 g/dL (3.4-4.8); Alkaline Phosphatase 120 U/L (40-110); Anion Gap 15 mmol/L (10-20); BUN (Urea Nitrogen) 23 mg/dL (9.8-20.1); Bilirubin, Total 0.3 mg/dL (0.2-1.2); Calc. Creatinine Clearance 0 mL/min (70-130); Calcium 9.2 mg/dL (7.8-10.44); Carbon Dioxide 33 mmol/L (23-31); Chloride 96 mmol/L (98-107); Globulin 3.8 g/dL (2.4-3.5); Glucose 196 mg/dL (80-115); Potassium 5.5 mmol/L (3.5-5.1); Protein, Total 7.6 g/dL (5.8-8.1); Sodium 138 mmol/L (136-145)
[2021-05-24 13:29] LABS: Bilirubin Negative (Negative); Blood, Urine Negative (Negative); Clarity Clear (Clear); Glucose, Urine (Dipstick) Negative (Negative); Ketone, Urine Negative (Negative); Leukocyte Negative (Negative); Nitrite Negative (Negative); Protein, Urine (Dipstick) Negative (Neg-Trace); Urobilinogen 0.2 mg/dL (Less than 2)
[2021-05-24 13:49] LABS: Base Excess-Venous 0.2 mmol/L (-2.0 to 3.0); Bicarbonate (HCO3v) 31.8 mmol/L (22.0-28.0); CO2 Tension (PvCO2) 91.8 mmHg (42.0-51.0); Calcium, Ionized 1.15 mmol/L (1.15-1.33); Chloride 96 mmol/L (98-107); Hemoglobin - Calc 13.2 g/dL (12.0-16.0); Potassium 5.4 mmol/L (3.5-5.1); Sodium 140 mmol/L (138-145); T. Carbon Dioxide 34.6 mmol/L (22.0-28.0); vO2 Saturation-calc 98.9 % (60.0-85.0)
[2021-05-24] MEDS ORDERED: Sodium Chloride 0.9% 100 ML ONE (14:11)
[2021-05-24] MEDS ORDERED: cefTRIAXone\\ROCEPHIN 1 GM VIAL ONE (14:11)
[2021-05-24 15:56] LABS: SARS-CoV-2 NAA Rapid Test Not Detected (NotDetected)
[2021-05-24 17:08] LABS: Base Excess-Venous 0.5 mmol/L (-2.0 to 3.0); Bicarbonate (HCO3v) 31.6 mmol/L (22.0-28.0); CO2 Tension (PvCO2) 84.8 mmHg (42.0-51.0); Calcium, Ionized 1.08 mmol/L (1.15-1.33); Chloride 101 mmol/L (98-107); Hemoglobin - Calc 14.3 g/dL (12.0-16.0); Potassium 5.6 mmol/L (3.5-5.1); Sodium 140 mmol/L (138-145); T. Carbon Dioxide 34.2 mmol/L (22.0-28.0); vO2 Saturation-calc 99.4 % (60.0-85.0)
[2021-05-24 23:45] LABS: CO2 Tension (PvCO2) 80.8 mmHg (42.0-51.0)
[2021-05-24 23:46] LABS: Base Excess-Venous 2.8 mmol/L (-2.0 to 3.0); Calcium, Ionized 1.08 mmol/L (1.15-1.33); Chloride 99 mmol/L (98-107); Potassium 5.7 mmol/L (3.5-5.1); Sodium 139 mmol/L (138-145); T. Carbon Dioxide 35.5 mmol/L (22.0-28.0)
[2021-05-25 08:37] LABS: Base Excess-Venous 3.7 mmol/L (-2.0 to 3.0); Bicarbonate (HCO3v) 34.8 mmol/L (22.0-28.0); CO2 Tension (PvCO2) 89.4 mmHg (42.0-51.0); Calcium, Ionized 1.11 mmol/L (1.15-1.33); Chloride 99 mmol/L (98-107); Hemoglobin - Calc 13.5 g/dL (12.0-16.0); Potassium 5.6 mmol/L (3.5-5.1); Sodium 142 mmol/L (138-145); T. Carbon Dioxide 37.6 mmol/L (22.0-28.0)
[2021-05-25] MEDS ORDERED: methylPREDNISolone Sod Succ/PF 125 MG/2 ML VIAL ONE ×2 (09:05→18:01)
[2021-05-25] MEDS ORDERED: Ketorolac Tromethamine 30 MG/ML VIAL ONE ×2 (10:01→19:15)
[2021-05-25] MEDS ORDERED: Nicotine 7 MG PATCH ONE (10:01)
[2021-05-25 12:45] LABS: Base Excess-Venous 6.5 mmol/L (-2.0 to 3.0); Bicarbonate (HCO3v) 35.5 mmol/L (22.0-28.0); CO2 Tension (PvCO2) 74.9 mmHg (42.0-51.0); Calcium, Ionized 1.09 mmol/L (1.15-1.33); Chloride 99 mmol/L (98-107); Potassium 5.3 mmol/L (3.5-5.1); Sodium 141 mmol/L (138-145); T. Carbon Dioxide 37.8 mmol/L (22.0-28.0); vO2 Saturation-calc 80.6 % (60.0-85.0)
[2021-05-25 15:27] LABS: Base Excess-Venous 5.8 mmol/L (-2.0 to 3.0); Bicarbonate (HCO3v) 33.3 mmol/L (22.0-28.0); CO2 Tension (PvCO2) 61.6 mmHg (42.0-51.0); Calcium, Ionized 1.05 mmol/L (1.15-1.33); Chloride 99 mmol/L (98-107); Sodium 141 mmol/L (138-145); T. Carbon Dioxide 35.2 mmol/L (22.0-28.0); vO2 Saturation-calc 98.1 % (60.0-85.0)
[2021-05-25 19:20] LABS: Bicarbonate (HCO3v) 31.5 mmol/L (22.0-28.0); CO2 Tension (PvCO2) 54.5 mmHg (42.0-51.0); Chloride 96 mmol/L (98-107); Hemoglobin - Calc 11.5 g/dL (12.0-16.0); Potassium 5.1 mmol/L (3.5-5.1); Sodium 140 mmol/L (138-145); T. Carbon Dioxide 33.2 mmol/L (22.0-28.0); vO2 Saturation-calc 99.5 % (60.0-85.0)
[2021-05-26 00:37] LABS: Base Excess-Venous 7.9 mmol/L (-2.0 to 3.0); Bicarbonate (HCO3v) 34.7 mmol/L (22.0-28.0); CO2 Tension (PvCO2) 58.6 mmHg (42.0-51.0); Calcium, Ionized 1.11 mmol/L (1.15-1.33); Chloride 98 mmol/L (98-107); Hemoglobin - Calc 11.7 g/dL (12.0-16.0); Potassium 4.9 mmol/L (3.5-5.1); Sodium 142 mmol/L (138-145); T. Carbon Dioxide 36.5 mmol/L (22.0-28.0); vO2 Saturation-calc 99.8 % (60.0-85.0)
[2021-05-26 06:27] LABS: Base Excess-Venous 7.6 mmol/L (-2.0 to 3.0); Bicarbonate (HCO3v) 33.6 mmol/L (22.0-28.0); CO2 Tension (PvCO2) 52.1 mmHg (42.0-51.0); Calcium, Ionized 1.09 mmol/L (1.15-1.33); Chloride 98 mmol/L (98-107); Hemoglobin - Calc 12.6 g/dL (12.0-16.0); Sodium 141 mmol/L (138-145); T. Carbon Dioxide 35.2 mmol/L (22.0-28.0); vO2 Saturation-calc 93.1 % (60.0-85.0)
[2021-05-26 06:51] LABS: #Lymphocytes 0.8 thou/uL (1.20-3.40); #Monocytes 0.4 thou/uL (0.11-0.59); #Neutrophils 14.8 thou/uL (1.40-6.50); %Basophils 0.2 % (0.0-1.0); %Lymphocytes 5.1 % (21.0-51.0); %Monocytes 2.7 % (0.0-10.0); Hemoglobin 10.6 g/dL (12.0-16.0); Mean Corpuscular HGB CONC 30.4 g/dL (32.0-36.0); Mean Corpuscular Hemoglobin 26.4 pg (27.0-31.0); Mean Corpuscular Volume 86.8 fL (78.0-98.0); Mean Platelet Volume 8.4 fL (7.4-10.4); Platelet Count 254 thou/uL (130-400); RBC Distribution Width 14.2 % (11.5-14.5); Red Blood Cell (RBC) Count 3.99 mill/uL (4.20-5.40); White Blood Cell (WBC) Count 16.1 thou/uL (4.8-10.8)
[2021-05-26 07:07] LABS: ALT (SGPT) 36 U/L (8-55); AST (SGOT) 19 U/L (5-34); Albumin 3.7 g/dL (3.4-4.8); Alkaline Phosphatase 103 U/L (40-110); Anion Gap 14 mmol/L (10-20); BUN (Urea Nitrogen) 27 mg/dL (9.8-20.1); Bilirubin, Total 0.3 mg/dL (0.2-1.2); Calc. Creatinine Clearance 0 mL/min (70-130); Calcium 8.9 mg/dL (7.8-10.44); Carbon Dioxide 31 mmol/L (23-31); Chloride 98 mmol/L (98-107); Globulin 3.5 g/dL (2.4-3.5); Glucose 183 mg/dL (80-115); Potassium 4.9 mmol/L (3.5-5.1); Protein, Total 7.2 g/dL (5.8-8.1); Sodium 138 mmol/L (136-145)
[2021-05-26 12:08] LABS: Bicarbonate (HCO3v) 35.2 mmol/L (22.0-28.0); CO2 Tension (PvCO2) 62.8 mmHg (42.0-51.0); Calcium, Ionized 1.14 mmol/L (1.15-1.33); Chloride 96 mmol/L (98-107); Hemoglobin - Calc 10.7 g/dL (12.0-16.0); Potassium 4.6 mmol/L (3.5-5.1); Sodium 140 mmol/L (138-145); T. Carbon Dioxide 37.1 mmol/L (22.0-28.0); vO2 Saturation-calc 99.2 % (60.0-85.0)
== END 2021-05-26 13:18 | disposition home or self-care (01) ==
LOC: MADERS 11:50
DX: J44.1 Chronic obstructive pulmonary disease with (acute) exacerbation (principal); J18.1 Lobar pneumonia, unspecified organism; J96.91 Respiratory failure, unspecified with hypoxia; J96.92 Respiratory failure, unspecified with hypercapnia; I11.0 Hypertensive heart disease with heart failure; I50.9 Heart failure, unspecified; E66.9 Obesity, unspecified; F17.210 Nicotine dependence, cigarettes, uncomplicated; Z20.822 Contact with and (suspected) exposure to COVID-19; Z79.899 Other long term (current) drug therapy; Z79.82 Long term (current) use of aspirin
CPT/HCPCS: 71045 ×2; 80053; 81003; 82330; 82435 ×2; 82803; 82962; 83690; 83880; 84132 ×2; 84295 ×2; 84484; 85014 ×2; 85025; 87804 ×2; 93005 ×2; U0002; 36415; 36416; 51702; 96365; 96367; 96374; 96375; 96376; J0696; J1885; J2930; J3490; J7620

== ENCOUNTER 2021-06-20 10:38 | Emergency (ER) | payer MEDICARE ==
[~2021-06-20 10:38] MED LIST changes: -Iopamidol 370 76% 100 ML VIAL ONE; +PROPOFOL 200 MG/20 ML VIAL ONE; +Rocuronium Bromide 10 MG/ML (10ML VIAL) ONE
[2021-06-20] MEDS ORDERED: Naloxone HCl 2 mg/2 ml Syringe ONE (10:52)
[2021-06-20] MEDS ORDERED: methylPREDNISolone Sod Succ/PF 125 MG/2 ML VIAL ONE ×2 (10:52→11:09)
[2021-06-20] MEDS ORDERED: SUMAtriptan Succinate 6 MG/0.5 ML VIAL ONE (10:52)
[2021-06-20 11:00] LABS: #Basophils 0.1 thou/uL (0.0-0.2); #Lymphocytes 0.5 thou/uL (1.20-3.40); #Monocytes 0.6 thou/uL (0.11-0.59); #Neutrophils 13.6 thou/uL (1.40-6.50); %Basophils 0.5 % (0.0-1.0); %Lymphocytes 3.6 % (21.0-51.0); %Monocytes 4.3 % (0.0-10.0); %Neutrophils 91.5 % (42.0-75.0); Hemoglobin 10.7 g/dL (12.0-16.0); Mean Corpuscular HGB CONC 31.4 g/dL (32.0-36.0); Mean Corpuscular Hemoglobin 27.4 pg (27.0-31.0); Mean Corpuscular Volume 87.4 fL (78.0-98.0); Mean Platelet Volume 8.4 fL (7.4-10.4); Platelet Count 356 thou/uL (130-400); RBC Distribution Width 15.5 % (11.5-14.5); Red Blood Cell (RBC) Count 3.89 mill/uL (4.20-5.40); White Blood Cell (WBC) Count 14.8 thou/uL (4.8-10.8)
[2021-06-20] MEDS ORDERED: Sodium Chloride 0.9% 100 ML ONE (11:09)
[2021-06-20] MEDS ORDERED: cefTRIAXone\\ROCEPHIN 2 GM VIAL ONE (11:09)
[2021-06-20] MEDS ORDERED: Sodium Chloride 0.9% 250 ML 250 ML ONE (11:45)
[2021-06-20] MEDS ORDERED: Azithromycin 500 MG VIAL ONE (11:45)
[2021-06-20 12:05] LABS: ALT (SGPT) 27 U/L (8-55); AST (SGOT) 28 U/L (5-34); Acetaminophen Less than 6.0 mcg/mL (10.0-30.0); Albumin 3.5 g/dL (3.4-4.8); Alcohol Less than 10 mg/dL (Less than 10); Alkaline Phosphatase 136 U/L (40-110); Anion Gap 20 mmol/L (10-20); BUN (Urea Nitrogen) 28 mg/dL (9.8-20.1); Bilirubin, Total 0.3 mg/dL (0.2-1.2); Calc. Creatinine Clearance 0 mL/min (70-130); Calcium 8.6 mg/dL (7.8-10.44); Carbon Dioxide 32 mmol/L (23-31); Chloride 91 mmol/L (98-107); Globulin 3.7 g/dL (2.4-3.5); Glucose 213 mg/dL (80-115); Potassium 5.7 mmol/L (3.5-5.1); Protein, Total 7.2 g/dL (5.8-8.1); Salicylate Less than 8.0 mg/dL (15.0-30.0); Sodium 137 mmol/L (136-145)
[2021-06-20 12:07] LABS: CO2 Tension (PvCO2) 115.2 mmHg (42.0-51.0); Calcium, Ionized 1.14 mmol/L (1.15-1.33); Chloride 93 mmol/L (98-107); Hemoglobin - Calc 13.1 g/dL (12.0-16.0); Potassium 6.1 mmol/L (3.5-5.1); Sodium 138 mmol/L (138-145); T. Carbon Dioxide 43.5 mmol/L (22.0-28.0); vO2 Saturation-calc 99.3 % (60.0-85.0)
[2021-06-20] MEDS ORDERED: Ipratropium Bromide 2.5 ml Neb ONE ×2 (12:28→12:30)
[2021-06-20] MEDS ORDERED: Insulin Regular 300 UNITS/3 ML VIAL ONE (12:28)
[2021-06-20] MEDS ORDERED: Albuterol Sulfate 2.5 mg/0.5 ml Neb ONE ×2 (12:28→12:30)
[2021-06-20] MEDS ORDERED: Furosemide 40 MG/4 ML VIAL ONE (12:28)
[2021-06-20] MEDS ORDERED: Calcium Gluc 4.6 MEQ/10 ML (100 MG/ML) ONE (12:28)
[2021-06-20] MEDS ORDERED: Propofol 1,000 MG/100 ML VIAL IV ONE (12:56)
[2021-06-20 13:16] LABS: Amphetamine Not Detected (NotDetected); Barbiturates Screen Not Detected (NotDetected); Benzodiazepine Screen Detected (NotDetected); Cocaine Metabolite Screen Not Detected (NotDetected); Methadone Not Detected (NotDetected); Methamphetamine Not Detected (NotDetected); Opiate Screen Detected (NotDetected); Phencyclidine (PCP) Not Detected (NotDetected); THC/Cannabinoid Screen Not Detected (NotDetected); Tricyclic Screen Not Detected (NotDetected)
[2021-06-20 13:17] LABS: Medtox Control Line Valid? VALID (VALID); Oxycodone Screen Not Detected (NotDetected)
== END 2021-06-20 13:03 | disposition short-term general hospital (02) ==
LOC: MADERS 10:38
DX: J96.00 Acute respiratory failure, unspecified whether with hypoxia or hypercapnia (principal); N17.9 Acute kidney failure, unspecified; G93.40 Encephalopathy, unspecified; E87.5 Hyperkalemia; E83.41 Hypermagnesemia; E87.2 Acidosis; R73.9 Hyperglycemia, unspecified; D72.829 Elevated white blood cell count, unspecified; I11.0 Hypertensive heart disease with heart failure; I50.9 Heart failure, unspecified; J44.9 Chronic obstructive pulmonary disease, unspecified; E66.9 Obesity, unspecified; F17.210 Nicotine dependence, cigarettes, uncomplicated; Z68.45 Body mass index [BMI] 70 or greater, adult; Z79.82 Long term (current) use of aspirin; Z79.899 Other long term (current) drug therapy
CPT/HCPCS: 70450; 71045; 80306; 80307; 82330; 82435; 82803; 83605; 83735; 83880; 84132; 84295; 84484; 85014; 93005; 94760; J0610; 31500; 51702; 80053; 84443; 85025; 96365; 96374; 96375; 99292; J0456; J0696; J1815; J1940; J2310; J2704; J2930; J3030; J3490; J7050; J7611; J7620

== ENCOUNTER 2021-11-03 12:36 | Emergency (ER) | payer MEDICARE ==
[~2021-11-03 12:36] MED LIST changes: +Iopamidol 370 76% 100 ML VIAL ONE; -PROPOFOL 200 MG/20 ML VIAL ONE; -Rocuronium Bromide 10 MG/ML (10ML VIAL) ONE
[2021-11-03 13:44] LABS: Bilirubin Negative (Negative); Blood, Urine Negative (Negative); Clarity Clear (Clear); Glucose, Urine (Dipstick) Negative (Negative); Ketone, Urine Negative (Negative); Leukocyte Trace (Negative); Nitrite Negative (Negative); Protein, Urine (Dipstick) Negative (Neg-Trace); Urobilinogen 0.2 mg/dL (Less than 2)
[2021-11-03 13:47] LABS: Bacteria/HPF Rare-Few HPF (None Seen); RBC/HPF 0-3 HPF (0-3); Squamous Epithelial 0-3 HPF (0-3); WBC/HPF 0-3 HPF (0-3)
[2021-11-03] MEDS ORDERED: Ondansetron PF 4 MG/2 ML Vial ONE (13:57)
[2021-11-03] MEDS ORDERED: Morphine 4 MG/ML VIAL ONE ×2 (13:57→16:28)
[2021-11-03 14:19] LABS: Band 1 % (5-11); Eosinophils 2 % (0-10); Hemoglobin 11.6 g/dL (12.0-16.0); Lymphocytes 20 % (21-51); MDiff Complete? YES; Mean Corpuscular HGB CONC 31.6 g/dL (32.0-36.0); Mean Corpuscular Hemoglobin 26.1 pg (27.0-31.0); Mean Corpuscular Volume 82.4 fL (78.0-98.0); Mean Platelet Volume 10.6 fL (7.4-10.4); Monocytes 3 % (0-10); Neutrophil 73 % (42-75); Platelet Count 283 thou/uL (130-400); Platelet Morphology Comment Appears Adequate; RBC Distribution Width 13.6 % (11.5-14.5); Reactive Lymphocytes 1 % (0-10); Red Blood Cell (RBC) Count 4.44 mill/uL (4.20-5.40); White Blood Cell (WBC) Count 10.3 thou/uL (4.8-10.8)
[2021-11-03 14:27] LABS: ALT (SGPT) 30 U/L (8-55); AST (SGOT) 24 U/L (5-34); Alkaline Phosphatase 183 U/L (40-110); Anion Gap 19 mmol/L (10-20); BUN (Urea Nitrogen) 10 mg/dL (9.8-20.1); Bilirubin, Total 0.3 mg/dL (0.2-1.2); Calc. Creatinine Clearance 0 mL/min (70-130); Calcium 8.8 mg/dL (7.8-10.44); Carbon Dioxide 28 mmol/L (23-31); Chloride 99 mmol/L (98-107); Estimated GFR 57; Globulin 3.1 g/dL (2.4-3.5); Glucose 107 mg/dL (80-115); Lipase 21 U/L (8-78); Potassium 4.2 mmol/L (3.5-5.1); Protein, Total 7.1 g/dL (5.8-8.1); Sodium 142 mmol/L (136-145)
== END 2021-11-03 16:40 | disposition home or self-care (01) ==
LOC: MADERS 12:36
DX: K63.89 Other specified diseases of intestine (principal); K76.0 Fatty (change of) liver, not elsewhere classified; K74.60 Unspecified cirrhosis of liver; I11.0 Hypertensive heart disease with heart failure; I50.9 Heart failure, unspecified; E66.9 Obesity, unspecified; J44.9 Chronic obstructive pulmonary disease, unspecified; Z87.891 Personal history of nicotine dependence; Z79.899 Other long term (current) drug therapy; Z79.82 Long term (current) use of aspirin
CPT/HCPCS: 74177; 80053; 81003; 81015; 83690; 85025; 96372; 96374; 96375; J2270; J2405; Q9967

== ENCOUNTER 2021-11-22 08:54 | Emergency (ER) | payer MEDICARE ==
[2021-11-22 09:34] LABS: #Basophils 0.1 thou/uL (0.0-0.2); #Eosinphils 0.2 thou/uL (0.0-0.7); #Lymphocytes 1.7 thou/uL (1.20-3.40); #Monocytes 0.6 thou/uL (0.11-0.59); #Neutrophils 8.6 thou/uL (1.40-6.50); %Basophils 1.2 % (0.0-1.0); %Eosinophils 1.9 % (0.0-10.0); %Lymphocytes 14.8 % (21.0-51.0); %Monocytes 5.7 % (0.0-10.0); %Neutrophils 76.3 % (42.0-75.0); Hemoglobin 10.9 g/dL (12.0-16.0); Mean Corpuscular HGB CONC 31.8 g/dL (32.0-36.0); Mean Corpuscular Hemoglobin 26.1 pg (27.0-31.0); Mean Corpuscular Volume 82.1 fL (78.0-98.0); Mean Platelet Volume 10.7 fL (7.4-10.4); Platelet Count 279 thou/uL (130-400); RBC Distribution Width 14.2 % (11.5-14.5); Red Blood Cell (RBC) Count 4.17 mill/uL (4.20-5.40); White Blood Cell (WBC) Count 11.2 thou/uL (4.8-10.8)
[2021-11-22] MEDS ORDERED: Iopamidol 370 76% 100 ML VIAL ONE (09:38)
[2021-11-22 09:46] LABS: ALT (SGPT) 38 U/L (8-55); AST (SGOT) 35 U/L (5-34); Albumin 3.8 g/dL (3.4-4.8); Alkaline Phosphatase 153 U/L (40-110); Anion Gap 14 mmol/L (10-20); BUN (Urea Nitrogen) 16 mg/dL (9.8-20.1); Bilirubin, Total 0.3 mg/dL (0.2-1.2); Calc. Creatinine Clearance 0 mL/min (70-130); Calcium 8.7 mg/dL (7.8-10.44); Carbon Dioxide 26 mmol/L (23-31); Chloride 104 mmol/L (98-107); Estimated GFR 61; Globulin 3.2 g/dL (2.4-3.5); Glucose 130 mg/dL (80-115); Lipase 11 U/L (8-78); Potassium 4.7 mmol/L (3.5-5.1); Sodium 139 mmol/L (136-145)
[2021-11-22 10:15] LABS: Bilirubin Negative (Negative); Blood, Urine Negative (Negative); Clarity Clear (Clear); Glucose, Urine (Dipstick) Negative (Negative); Ketone, Urine Negative (Negative); Leukocyte Negative (Negative); Nitrite Negative (Negative); Protein, Urine (Dipstick) Negative (Neg-Trace); Urobilinogen 0.2 mg/dL (Less than 2); pH, Urine 5.5 (5.0-9.0)
== END 2021-11-22 11:20 | disposition home or self-care (01) ==
LOC: MADERS 08:54
DX: K59.00 Constipation, unspecified (principal); M54.50 Low back pain, unspecified; R33.9 Retention of urine, unspecified; I11.0 Hypertensive heart disease with heart failure; I50.9 Heart failure, unspecified; J44.9 Chronic obstructive pulmonary disease, unspecified; F17.210 Nicotine dependence, cigarettes, uncomplicated; E66.9 Obesity, unspecified; Z68.45 Body mass index [BMI] 70 or greater, adult; Z79.82 Long term (current) use of aspirin; Z79.899 Other long term (current) drug therapy
CPT/HCPCS: 36415; 51702; 51798; 71045; 74177; 80053; 81003; 83605; 83690; 83880; 84484; 85025; 93005; 94760; Q9967

== ENCOUNTER 2021-12-02 10:20 | Emergency (ER) | payer MEDICARE ==
[2021-12-02] MEDS ORDERED: Morphine 2 MG/ML VIAL ONE (11:16)
[2021-12-02] MEDS ORDERED: Morphine 4 MG/ML VIAL ONE (11:16)
[2021-12-02 11:21] LABS: Bilirubin Negative (Negative); Blood, Urine Small (Negative); Glucose, Urine (Dipstick) Negative (Negative); Ketone, Urine Negative (Negative); Leukocyte Trace (Negative); Nitrite Negative (Negative); Protein, Urine (Dipstick) Negative (Neg-Trace); Urobilinogen 0.2 mg/dL (Less than 2)
[2021-12-02 11:23] LABS: Clarity Hazy (Clear); RBC/HPF 0-3 HPF (0-3); Specific Gravity, Urine 1.006 (1.002-1.036); Squamous Epithelial 0-3 HPF (0-3)
[2021-12-02 11:24] LABS: Bacteria/HPF 1+ HPF (None Seen)
[2021-12-02 12:07] LABS: #Basophils 0.1 thou/uL (0.0-0.2); #Eosinphils 0.2 thou/uL (0.0-0.7); #Lymphocytes 1.5 thou/uL (1.20-3.40); #Monocytes 0.7 thou/uL (0.11-0.59); %Basophils 0.5 % (0.0-1.0); %Eosinophils 2.3 % (0.0-10.0); %Lymphocytes 14.3 % (21.0-51.0); %Monocytes 6.8 % (0.0-10.0); %Neutrophils 76.1 % (42.0-75.0); Hemoglobin 10.7 g/dL (12.0-16.0); Mean Corpuscular HGB CONC 30.3 g/dL (32.0-36.0); Mean Corpuscular Hemoglobin 26.1 pg (27.0-31.0); Mean Corpuscular Volume 86.3 fL (78.0-98.0); Mean Platelet Volume 10.8 fL (7.4-10.4); Platelet Count 258 thou/uL (130-400); RBC Distribution Width 13.7 % (11.5-14.5); White Blood Cell (WBC) Count 10.5 thou/uL (4.8-10.8)
[2021-12-02 12:32] LABS: ALT (SGPT) 26 U/L (8-55); AST (SGOT) 22 U/L (5-34); Albumin 3.8 g/dL (3.4-4.8); Alkaline Phosphatase 186 U/L (40-110); Anion Gap 17 mmol/L (10-20); BUN (Urea Nitrogen) 22 mg/dL (9.8-20.1); Bilirubin, Total 0.2 mg/dL (0.2-1.2); Calc. Creatinine Clearance 0 mL/min (70-130); Calcium 8.9 mg/dL (7.8-10.44); Carbon Dioxide 27 mmol/L (23-31); Chloride 92 mmol/L (98-107); Estimated GFR 46; Globulin 3.7 g/dL (2.4-3.5); Glucose 119 mg/dL (80-115); Lipase 10 U/L (8-78); Potassium 4.9 mmol/L (3.5-5.1); Protein, Total 7.5 g/dL (5.8-8.1); Sodium 131 mmol/L (136-145)
== END 2021-12-02 13:22 | disposition short-term general hospital (02) ==
LOC: MADERS 10:20
DX: M54.50 Low back pain, unspecified (principal); R15.9 Full incontinence of feces; I11.0 Hypertensive heart disease with heart failure; I50.9 Heart failure, unspecified; J44.9 Chronic obstructive pulmonary disease, unspecified; F17.210 Nicotine dependence, cigarettes, uncomplicated; Z79.899 Other long term (current) drug therapy
CPT/HCPCS: 51702; 80053; 81003; 81015; 83605; 83690; 85025; 86140; 87077; 87086; 87186; 96374; J2270

== ENCOUNTER 2021-12-03 16:29 | Emergency (ER) | payer MEDICARE ==
[2021-12-03 17:33] LABS: Bilirubin Negative (Negative); Blood, Urine Moderate (Negative); Glucose, Urine (Dipstick) Negative (Negative); Ketone, Urine Negative (Negative); Leukocyte Moderate (Negative); Nitrite Negative (Negative); Protein, Urine (Dipstick) Negative (Neg-Trace); Urobilinogen 0.2 mg/dL (Less than 2)
[2021-12-03 17:35] LABS: Clarity Cloudy (Clear); Specific Gravity, Urine 1.008 (1.002-1.036)
[2021-12-03 17:39] LABS: Bacteria/HPF 3+ HPF (None Seen); RBC/HPF 21-50 HPF (0-3); Squamous Epithelial 0-3 HPF (0-3); WBC/HPF Greater Than 50 HPF (0-3)
[2021-12-03] MEDS ORDERED: Cephalexin 500 MG CAP ONE (18:25)
== END 2021-12-03 18:40 | disposition home or self-care (01) ==
LOC: MADERS 16:29
DX: T83.028A Displacement of other urinary catheter, initial encounter (principal); N30.00 Acute cystitis without hematuria; I11.0 Hypertensive heart disease with heart failure; I50.9 Heart failure, unspecified; J44.9 Chronic obstructive pulmonary disease, unspecified; F17.210 Nicotine dependence, cigarettes, uncomplicated; E66.9 Obesity, unspecified; Z68.45 Body mass index [BMI] 70 or greater, adult; Z87.19 Personal history of other diseases of the digestive system; Z79.82 Long term (current) use of aspirin; Z79.899 Other long term (current) drug therapy
CPT/HCPCS: 51702; 81003; 81015; 87077; 87086; 87186

== ENCOUNTER 2022-01-11 13:25 | Outpatient (CLI) | payer MEDICARE | END 2022-01-11 13:26 | disposition home or self-care (01) | LOC: MADRAD 13:25 | PROVIDERS: ATTEND Physician Assistant Surgical | DX: S32.010A Wedge compression fracture of first lumbar vertebra, initial encounter for closed fracture (principal) | CPT/HCPCS: 72100 ==

== ENCOUNTER 2022-01-26 14:20 | Emergency (ER) | payer MEDICARE ==
[2022-01-26] MEDS ORDERED: Morphine 4 MG/ML VIAL ONE ×2 (15:30→17:51)
[2022-01-26] MEDS ORDERED: Ampicillin/Sulbactam 3 GM VIAL ONE (15:30)
[2022-01-26 16:04] LABS: Bilirubin Negative (Negative); Blood, Urine Negative (Negative); Glucose, Urine (Dipstick) Negative (Negative); Ketone, Urine Negative (Negative); Leukocyte Trace (Negative); Nitrite Negative (Negative); Protein, Urine (Dipstick) Negative (Neg-Trace); Urobilinogen 0.2 mg/dL (Less than 2)
[2022-01-26 16:05] LABS: #Basophils 0.1 thou/uL (0.0-0.2); #Eosinphils 0.2 thou/uL (0.0-0.7); #Lymphocytes 1.8 thou/uL (1.20-3.40); #Monocytes 0.6 thou/uL (0.11-0.59); #Neutrophils 4.8 thou/uL (1.40-6.50); %Basophils 1.2 % (0.0-1.0); %Lymphocytes 23.8 % (21.0-51.0); %Monocytes 8.3 % (0.0-10.0); %Neutrophils 63.8 % (42.0-75.0); Mean Corpuscular HGB CONC 31.6 g/dL (32.0-36.0); Mean Corpuscular Hemoglobin 26.8 pg (27.0-31.0); Mean Corpuscular Volume 84.9 fL (78.0-98.0); Mean Platelet Volume 10.2 fL (7.4-10.4); Platelet Count 266 thou/uL (130-400); RBC Distribution Width 12.9 % (11.5-14.5); Red Blood Cell (RBC) Count 3.36 mill/uL (4.20-5.40); White Blood Cell (WBC) Count 7.6 thou/uL (4.8-10.8)
[2022-01-26 16:09] LABS: Clarity Clear (Clear)
[2022-01-26 16:11] LABS: Bacteria/HPF Rare-Few HPF (None Seen); RBC/HPF 0-3 HPF (0-3); Specific Gravity, Urine 1.006 (1.002-1.036); Squamous Epithelial 0-3 HPF (0-3)
[2022-01-26 16:20] LABS: ALT (SGPT) 16 U/L (8-55); AST (SGOT) 13 U/L (5-34); Albumin 3.6 g/dL (3.4-4.8); Alkaline Phosphatase 141 U/L (40-110); Anion Gap 12 mmol/L (10-20); BUN (Urea Nitrogen) 11 mg/dL (9.8-20.1); Bilirubin, Total 0.2 mg/dL (0.2-1.2); Calc. Creatinine Clearance 0 mL/min (70-130); Calcium 8.7 mg/dL (7.8-10.44); Carbon Dioxide 28 mmol/L (23-31); Chloride 97 mmol/L (98-107); Estimated GFR 73; Globulin 3.1 g/dL (2.4-3.5); Glucose 109 mg/dL (80-115); Potassium 4.8 mmol/L (3.5-5.1); Protein, Total 6.7 g/dL (5.8-8.1); Sodium 132 mmol/L (136-145)
[2022-01-26 16:21] LABS: CRP (Inflammatory) 1.46 mg/dL (= or < 0.5)
[2022-01-26] MEDS ORDERED: Sodium Chloride 0.9% 100 ML ONE (16:26)
[2022-01-26] MEDS ORDERED: Ondansetron PF 4 MG/2 ML Vial ONE (16:26)
== END 2022-01-26 18:00 | disposition left against medical advice (07) ==
LOC: MADERS 14:20
DX: R60.0 Localized edema (principal); J44.9 Chronic obstructive pulmonary disease, unspecified; I11.0 Hypertensive heart disease with heart failure; I50.9 Heart failure, unspecified; F17.210 Nicotine dependence, cigarettes, uncomplicated
CPT/HCPCS: 36415; 70491; 71045; 80053; 81003; 81015; 83605; 83690; 85025; 86140; 87040; 96365; 96375; 96376; J0295; J2270; J2405; J3490; Q9967

== ENCOUNTER 2022-02-03 13:06 | Outpatient (CLI) | payer MEDICARE | END 2022-02-03 13:07 | disposition home or self-care (01) | LOC: MADRAD 13:06 | PROVIDERS: ATTEND Neurological Surgery | DX: M48.56XA Collapsed vertebra, not elsewhere classified, lumbar region, initial encounter for fracture (principal); M43.8X6 Other specified deforming dorsopathies, lumbar region; M43.8X4 Other specified deforming dorsopathies, thoracic region | CPT/HCPCS: 72100 ==

== ENCOUNTER 2022-11-18 23:16 | Emergency (ER) | payer MEDICARE ==
[2022-11-19 00:38] LABS: #Basophils 0.1 thou/uL (0.0-0.2); #Eosinphils 0.2 thou/uL (0.0-0.7); #Lymphocytes 2.2 thou/uL (1.20-3.40); #Monocytes 0.7 thou/uL (0.11-0.59); %Basophils 1.8 % (0.0-1.0); %Eosinophils 2.9 % (0.0-10.0); %Lymphocytes 30.3 % (21.0-51.0); Hemoglobin 11.2 g/dL (12.0-16.0); Mean Corpuscular Hemoglobin 30.1 pg (27.0-31.0); Mean Corpuscular Volume 88.5 fl (78.0-98.0); Mean Platelet Volume 8.8 fL (7.4-10.4); Platelet Count 277 10x3/uL (130-400); RBC Distribution Width 13.5 % (11.5-14.5); Red Blood Cell (RBC) Count 3.71 mill/uL (4.20-5.40); White Blood Cell (WBC) Count 7.3 10x3/uL (4.8-10.8)
[2022-11-19] MEDS ORDERED: Morphine 4 MG/ML VIAL ONE (00:41)
[2022-11-19] MEDS ORDERED: Ondansetron PF 4 MG/2 ML Vial ONE (00:41)
[2022-11-19 01:18] LABS: Bilirubin Negative (Negative); Blood, Urine Trace (Negative); Clarity Clear (Clear); Glucose, Urine (Dipstick) Negative (Negative); Ketone, Urine Negative (Negative); Leukocyte Negative (Negative); Nitrite Negative (Negative); Protein, Urine (Dipstick) Negative (Neg-Trace); Specific Gravity, Urine 1.015 (1.005-1.030); Urobilinogen 0.2 mg/dL (Less than 2)
[2022-11-19 01:26] LABS: Bacteria/HPF Rare-Few HPF (None Seen); CAUTI Indications for Culture Pelvic or flank pain; RBC/HPF None Seen HPF (0-3); Squamous Epithelial 0-3 HPF (0-3); WBC/HPF 0-3 HPF (0-3)
[2022-11-19 01:27] LABS: Urine Culture Reflex No No
[2022-11-19 01:39] LABS: ALT (SGPT) 17 U/L (8-55); AST (SGOT) 19 U/L (5-34); Albumin 3.8 g/dL (3.4-4.8); Alkaline Phosphatase 134 U/L (40-110); Anion Gap 15 mmol/L (10-20); BUN (Urea Nitrogen) 14 mg/dL (9.8-20.1); Bilirubin, Total 0.2 mg/dL (0.2-1.2); Calc. Creatinine Clearance 0 mL/min (70-130); Calcium 8.6 mg/dL (7.8-10.44); Carbon Dioxide 24 mmol/L (23-31); Chloride 91 mmol/L (98-107); Estimated GFR 67; Globulin 2.6 g/dL (2.4-3.5); Glucose 102 mg/dL (83-110); Lipase 23 U/L (8-78); Potassium 5.6 mmol/L (3.5-5.1); Protein, Total 6.4 g/dL (5.8-8.1); Sodium 124 mmol/L (136-145)
[2022-11-19] MEDS ORDERED: Sodium Chloride 0.9% 1,000 ML ONE (01:48)
[2022-11-19] MEDS ORDERED: Albuterol 2.5 MG/0.5 ML NEB ONE (01:48)
[2022-11-19] MEDS ORDERED: Sodium Chloride 0.9% 1,000 ML IV SCH (02:00)
[2022-11-19] MEDS ORDERED: Sodium Chloride For Inhalation 0.9% 3 ML NEB ONE (02:14)
== END 2022-11-19 03:03 | disposition left against medical advice (07) ==
LOC: MADERS 23:16
DX: E87.1 Hypo-osmolality and hyponatremia (principal); E87.5 Hyperkalemia; R10.9 Unspecified abdominal pain; I11.0 Hypertensive heart disease with heart failure; I50.9 Heart failure, unspecified; F17.210 Nicotine dependence, cigarettes, uncomplicated; Z79.82 Long term (current) use of aspirin; Z79.01 Long term (current) use of anticoagulants; Z79.899 Other long term (current) drug therapy
CPT/HCPCS: 71045; 74177; 80053; 81001; 83690; 83735; 83880; 84484; 85025; 93005; 94760; 96361; 96374; 96375; J2270; J2405; J7050; J7611; Q9967

== ENCOUNTER 2022-12-16 15:46 | Emergency (ER) | payer MEDICARE, OTHER ==
[2022-12-16] MEDS ORDERED: Sodium Chloride 0.9% 1,000 ML ONE (16:14)
[2022-12-16] MEDS ORDERED: diphenhydrAMINE 50 MG/ML VIAL ONE (16:14)
[2022-12-16] MEDS ORDERED: Metoclopramide HCl 10 MG/2 ML VIAL ONE ×2 (16:14→18:29)
[2022-12-16 16:38] LABS: #Basophils 0.1 thou/uL (0.0-0.2); #Eosinphils 0.2 thou/uL (0.0-0.7); #Monocytes 0.6 thou/uL (0.11-0.59); #Neutrophils 3.9 thou/uL (1.40-6.50); %Basophils 1.2 % (0.0-1.0); %Eosinophils 3.1 % (0.0-10.0); %Monocytes 8.4 % (0.0-10.0); %Neutrophils 58.3 % (42.0-75.0); Hematocrit 35.2 % (36.0-47.0); Hemoglobin 11.8 g/dL (12.0-16.0); Mean Corpuscular HGB CONC 33.6 g/dL (32.0-36.0); Mean Corpuscular Hemoglobin 30.1 pg (27.0-31.0); Mean Corpuscular Volume 89.8 fl (78.0-98.0); Mean Platelet Volume 8.9 fL (7.4-10.4); Platelet Count 297 10x3/uL (130-400); RBC Distribution Width 13.7 % (11.5-14.5); Red Blood Cell (RBC) Count 3.92 mill/uL (4.20-5.40); White Blood Cell (WBC) Count 6.7 10x3/uL (4.8-10.8)
[2022-12-16 16:58] LABS: ALT (SGPT) 15 U/L (8-55); AST (SGOT) 18 U/L (5-34); Alkaline Phosphatase 105 U/L (40-110); Anion Gap 15 mmol/L (10-20); BUN (Urea Nitrogen) 9 mg/dL (9.8-20.1); Bilirubin, Total 0.2 mg/dL (0.2-1.2); Calc. Creatinine Clearance 0 mL/min (70-130); Calcium 8.7 mg/dL (7.8-10.44); Carbon Dioxide 23 mmol/L (23-31); Chloride 103 mmol/L (98-107); Estimated GFR 82; Globulin 2.8 g/dL (2.4-3.5); Glucose 94 mg/dL (83-110); Lipase 15 U/L (8-78); Potassium 4.9 mmol/L (3.5-5.1); Protein, Total 6.8 g/dL (5.8-8.1); Sodium 136 mmol/L (136-145)
[2022-12-16] MEDS ORDERED: Ketorolac Tromethamine 30 MG/ML VIAL ONE (17:22)
[2022-12-16] MEDS ORDERED: methylPREDNISolone Sod Succ/PF 125 MG/2 ML VIAL ONE (17:22)
[2022-12-16] MEDS ORDERED: Magnesium 2 GM/50 ML BAG (IN WATER) ONE (17:22)
[2022-12-16] MEDS ORDERED: Sodium Chloride 0.9% 500 ML ONE (18:29)
[2022-12-16] MEDS ORDERED: Morphine 4 MG/ML VIAL ONE ×2 (18:54→20:14)
[2022-12-16 19:46] LABS: Bilirubin Negative (Negative); Blood, Urine Negative (Negative); Clarity Clear (Clear); Glucose, Urine (Dipstick) Negative (Negative); Ketone, Urine Trace mg/dL (Negative); Leukocyte Negative (Negative); Nitrite Negative (Negative); Protein, Urine (Dipstick) Negative (Neg-Trace); Urobilinogen 0.2 mg/dL (Less than 2)
[2022-12-16 19:50] LABS: RBC/HPF None Seen HPF (0-3)
[2022-12-16 19:51] LABS: CAUTI Indications for Culture Alt mental st,lethar; Squamous Epithelial 0-3 HPF (0-3); Urine Culture Reflex No No; WBC/HPF None Seen HPF (0-3)
[2022-12-16] MEDS ORDERED: Morphine 2 MG/ML VIAL ONE (21:54)
== END 2022-12-16 22:30 | disposition short-term general hospital (02) ==
LOC: MADERS 15:46
DX: R51.9 Headache, unspecified (principal); I11.0 Hypertensive heart disease with heart failure; I50.9 Heart failure, unspecified; J44.9 Chronic obstructive pulmonary disease, unspecified; F17.210 Nicotine dependence, cigarettes, uncomplicated; Z79.82 Long term (current) use of aspirin; Z79.899 Other long term (current) drug therapy
CPT/HCPCS: 36415; 70450; 80053; 81001; 83690; 85025; 94760; 96365; 96366; 96367; 96375; 96376; J1200; J1885; J2270; J2272; J2765; J2930; J3475; J7030; J7050

== ENCOUNTER 2022-12-20 09:15 | Emergency (ER) | payer MEDICARE ==
[2022-12-20] MEDS ORDERED: Amlodipine 5 MG TAB ONE (09:58)
[2022-12-20] MEDS ORDERED: Lisinopril 10 MG TAB ONE (09:58)
== END 2022-12-20 10:13 | disposition home or self-care (01) ==
LOC: MADERS 09:15
DX: I10 Essential (primary) hypertension (principal); R29.700 NIHSS score 0; I11.0 Hypertensive heart disease with heart failure; I50.9 Heart failure, unspecified; J44.9 Chronic obstructive pulmonary disease, unspecified; F17.210 Nicotine dependence, cigarettes, uncomplicated; K21.9 Gastro-esophageal reflux disease without esophagitis; Z79.82 Long term (current) use of aspirin; Z79.899 Other long term (current) drug therapy

== ENCOUNTER 2023-02-16 09:37 | Outpatient (CLI) | payer MEDICARE, OTHER | END 2023-02-16 09:38 | disposition home or self-care (01) | LOC: MADRAD 09:37 | PROVIDERS: ATTEND Internal Medicine | DX: M79.645 Pain in left finger(s) (principal); M19.042 Primary osteoarthritis, left hand ==

== ENCOUNTER 2023-03-23 10:27 | Emergency (ER) | payer MEDICARE, OTHER ==
[2023-03-23] MEDS ORDERED: Lidocaine 4% Patch ONE (11:22)
== END 2023-03-23 11:52 | disposition home or self-care (01) ==
LOC: MADERS 10:27
DX: S32.040A Wedge compression fracture of fourth lumbar vertebra, initial encounter for closed fracture (principal); K21.9 Gastro-esophageal reflux disease without esophagitis; I11.0 Hypertensive heart disease with heart failure; I50.9 Heart failure, unspecified; J44.9 Chronic obstructive pulmonary disease, unspecified; F17.210 Nicotine dependence, cigarettes, uncomplicated; Z79.899 Other long term (current) drug therapy; Z79.82 Long term (current) use of aspirin; Z79.01 Long term (current) use of anticoagulants; W18.11XA Fall from or off toilet without subsequent striking against object, initial encounter
CPT/HCPCS: 72131

== ENCOUNTER 2023-04-11 03:36 | Emergency (ER) | payer MEDICARE, OTHER ==
[2023-04-11] MEDS ORDERED: Ketorolac Tromethamine 30 MG/ML VIAL ONE (04:19)
[2023-04-11] MEDS ORDERED: Lorazepam 2 MG/ML VIAL ONE (04:19)
[2023-04-11] MEDS ORDERED: Ondansetron ODT 4 MG TAB ONE (04:26)
== END 2023-04-11 04:41 | disposition home or self-care (01) ==
LOC: MADERS 03:36
DX: S32.049D Unspecified fracture of fourth lumbar vertebra, subsequent encounter for fracture with routine healing (principal); K86.1 Other chronic pancreatitis; J96.10 Chronic respiratory failure, unspecified whether with hypoxia or hypercapnia; W18.30XD Fall on same level, unspecified, subsequent encounter
CPT/HCPCS: 96372; 99283; J1885; J2060; Q0162

== ENCOUNTER 2023-04-29 13:54 | Emergency (ER) | payer MEDICARE, OTHER ==
[2023-04-29] MEDS ORDERED: Ketorolac Tromethamine 30 MG/ML VIAL ONE (14:28)
== END 2023-04-29 14:38 | disposition home or self-care (01) ==
LOC: MADERS 13:54
DX: S32.009A Unspecified fracture of unspecified lumbar vertebra, initial encounter for closed fracture (principal); I11.0 Hypertensive heart disease with heart failure; I50.9 Heart failure, unspecified; J44.9 Chronic obstructive pulmonary disease, unspecified; F17.210 Nicotine dependence, cigarettes, uncomplicated; Z79.899 Other long term (current) drug therapy; Z79.82 Long term (current) use of aspirin; X58.XXXA Exposure to other specified factors, initial encounter
CPT/HCPCS: 96372; 99283; J1885

== ENCOUNTER 2023-05-22 10:16 | Outpatient (CLI) | payer MEDICARE, OTHER ==
[2023-05-22 10:51] LABS: INR-International Normal Ratio 0.9; Prothrombin Time 12.3 sec (12.0-14.7)
[2023-05-22 10:52] LABS: PTT 28.3 sec (22.9-36.1)
[2023-05-22 12:02] LABS: Anion Gap 16 mmol/L (10-20); BUN (Urea Nitrogen) 12 mg/dL (9.8-20.1); Calc. Creatinine Clearance 0 mL/min (70-130); Calcium 8.8 mg/dL (7.8-10.44); Carbon Dioxide 20 mmol/L (23-31); Chloride 92 mmol/L (98-107); Estimated GFR 84; Glucose 108 mg/dL (83-110); Potassium 4.4 mmol/L (3.5-5.1); Sodium 124 mmol/L (136-145)
[2023-05-22 13:13] LABS: #Basophils 0.1 thou/uL (0.0-0.2); #Eosinphils 0.1 thou/uL (0.0-0.7); #Monocytes 0.6 thou/uL (0.11-0.59); #Neutrophils 4.9 thou/uL (1.40-6.50); %Basophils 1.5 % (0.0-1.0); %Eosinophils 1.9 % (0.0-10.0); %Lymphocytes 25.6 % (21.0-51.0); %Monocytes 8.1 % (0.0-10.0); Hematocrit 34.3 % (36.0-47.0); Hemoglobin 11.1 g/dL (12.0-16.0); Mean Corpuscular HGB CONC 32.4 g/dL (32.0-36.0); Mean Corpuscular Hemoglobin 29.6 pg (27.0-31.0); Mean Corpuscular Volume 91.1 fl (78.0-98.0); Mean Platelet Volume 6.9 fL (7.4-10.4); Platelet Count 399 10x3/uL (130-400); RBC Distribution Width 12.3 % (11.5-14.5); Red Blood Cell (RBC) Count 3.77 mill/uL (4.20-5.40); White Blood Cell (WBC) Count 7.8 10x3/uL (4.8-10.8)
== END 2023-05-22 10:17 | disposition home or self-care (01) ==
LOC: MADLAB 10:16
PROVIDERS: ATTEND Pain Medicine Pain Medicine
DX: Z01.818 Encounter for other preprocedural examination (principal); M80.00XA Age-related osteoporosis with current pathological fracture, unspecified site, initial encounter for fracture
CPT/HCPCS: 36415; 71046; 80048; 85025; 85610; 85730; 93005; 93010

== ENCOUNTER 2023-06-04 16:39 | Emergency (ER) | payer MEDICARE, OTHER ==
[2023-06-04] MEDS ORDERED: Promethazine HCl 25 MG/ML VIAL ONE (17:24)
[2023-06-04] MEDS ORDERED: Dicyclomine 20 MG/2 ML VIAL ONE (17:31)
[2023-06-04 17:43] LABS: #Eosinphils 0.1 thou/uL (0.0-0.7); #Lymphocytes 0.6 thou/uL (1.20-3.40); #Monocytes 0.4 thou/uL (0.11-0.59); #Neutrophils 9.6 thou/uL (1.40-6.50); %Basophils 0.5 % (0.0-1.0); %Eosinophils 0.6 % (0.0-10.0); %Lymphocytes 5.4 % (21.0-51.0); %Monocytes 3.8 % (0.0-10.0); %Neutrophils 89.7 % (42.0-75.0); Hematocrit 29.9 % (36.0-47.0); Hemoglobin 10.3 g/dL (12.0-16.0); Mean Corpuscular HGB CONC 34.3 g/dL (32.0-36.0); Mean Corpuscular Hemoglobin 30.2 pg (27.0-31.0); Mean Corpuscular Volume 87.8 fl (78.0-98.0); Mean Platelet Volume 7.1 fL (7.4-10.4); Platelet Count 348 10x3/uL (130-400); RBC Distribution Width 12.5 % (11.5-14.5); White Blood Cell (WBC) Count 10.8 10x3/uL (4.8-10.8)
[2023-06-04 17:51] LABS: ALT (SGPT) 16 U/L (8-55); AST (SGOT) 17 U/L (5-34); Albumin 4.1 g/dL (3.4-4.8); Alkaline Phosphatase 104 U/L (40-110); Anion Gap 16 mmol/L (10-20); BUN (Urea Nitrogen) 14 mg/dL (9.8-20.1); Bilirubin, Total 0.2 mg/dL (0.2-1.2); Calc. Creatinine Clearance 0 mL/min (70-130); Calcium 8.6 mg/dL (7.8-10.44); Carbon Dioxide 23 mmol/L (23-31); Chloride 95 mmol/L (98-107); Estimated GFR 76; Globulin 2.6 g/dL (2.4-3.5); Glucose 129 mg/dL (83-110); Lipase 16 U/L (8-78); Potassium 4.2 mmol/L (3.5-5.1); Protein, Total 6.7 g/dL (5.8-8.1); Sodium 130 mmol/L (136-145)
[2023-06-04] MEDS ORDERED: Haloperidol Lactate 5 MG/ML VIAL ONE (18:05)
[2023-06-04 18:32] LABS: SARS-CoV-2 NAA Rapid Test Not Detected (NotDetected)
== END 2023-06-04 18:55 | disposition home or self-care (01) ==
LOC: MADERS 16:39
DX: K86.1 Other chronic pancreatitis (principal); E87.1 Hypo-osmolality and hyponatremia; D64.9 Anemia, unspecified; K21.9 Gastro-esophageal reflux disease without esophagitis; I11.0 Hypertensive heart disease with heart failure; I50.9 Heart failure, unspecified; J44.9 Chronic obstructive pulmonary disease, unspecified; F17.210 Nicotine dependence, cigarettes, uncomplicated
CPT/HCPCS: 0240U; 80053; 83690; 85025; 93005; 36415; 96361; 96372; 96374; 96375; J1630; J2550

== ENCOUNTER 2024-01-04 13:57 | Emergency (ER) | payer MEDICARE ==
[2024-01-04 15:15] LABS: #Basophils 0.1 thou/uL (0.0-0.2); #Eosinphils 0.3 thou/uL (0.0-0.7); #Lymphocytes 2.2 thou/uL (1.20-3.40); #Monocytes 0.9 thou/uL (0.11-0.59); %Basophils 1.1 % (0.0-1.0); %Eosinophils 3.2 % (0.0-10.0); %Lymphocytes 26.1 % (21.0-51.0); %Monocytes 10.9 % (0.0-10.0); %Neutrophils 58.8 % (42.0-75.0); Hematocrit 30.1 % (36.0-47.0); Hemoglobin 9.8 g/dL (12.0-16.0); Mean Corpuscular HGB CONC 32.4 g/dL (32.0-36.0); Mean Corpuscular Hemoglobin 28.1 pg (27.0-31.0); Mean Corpuscular Volume 86.7 fl (78.0-98.0); Mean Platelet Volume 6.2 fL (7.4-10.4); Platelet Count 467 10x3/uL (130-400); RBC Distribution Width 12.3 % (11.5-14.5); Red Blood Cell (RBC) Count 3.47 mill/uL (4.20-5.40); White Blood Cell (WBC) Count 8.6 10x3/uL (4.8-10.8)
[2024-01-04 15:33] LABS: ALT (SGPT) 16 U/L (8-55); AST (SGOT) 18 U/L (5-34); Alkaline Phosphatase 123 U/L (40-110); Anion Gap 20 mmol/L (10-20); BUN (Urea Nitrogen) 18 mg/dL (9.8-20.1); Bilirubin, Total 0.2 mg/dL (0.2-1.2); Calc. Creatinine Clearance 0 mL/min (70-130); Carbon Dioxide 21 mmol/L (23-31); Chloride 83 mmol/L (98-107); Estimated GFR 54; Globulin 3.4 g/dL (2.4-3.5); Glucose 117 mg/dL (83-110); Lipase 23 U/L (8-78); Potassium 4.9 mmol/L (3.5-5.1); Protein, Total 7.4 g/dL (5.8-8.1)
[2024-01-04 15:44] LABS: Critical Call Chemistry NUR.AW2@1544; Sodium 119 mmol/L (136-145)
== END 2024-01-04 16:52 | disposition home or self-care (01) ==
LOC: MADERS 13:57
DX: E87.1 Hypo-osmolality and hyponatremia (principal)
CPT/HCPCS: 36415; 83690; 85025; 99283

== ENCOUNTER 2024-03-06 13:35 | Emergency (ER) | payer MEDICARE ==
[2024-03-06 15:19] LABS: #Basophils 0.1 thou/uL (0.0-0.2); #Eosinophils 0.2 thou/uL (0.0-0.7); #Lymphocytes 1.6 thou/uL (1.20-3.40); #Monocytes 0.6 thou/uL (0.11-0.59); %Basophils 1.1 % (0.0-1.0); %Eosinophils 3.8 % (0.0-10.0); %Lymphocytes 24.7 % (21.0-51.0); %Monocytes 8.9 % (0.0-10.0); %Neutrophils 61.5 % (42.0-75.0); Hematocrit 30.1 % (36.0-47.0); Hemoglobin 9.8 g/dL (12.0-16.0); Mean Corpuscular HGB CONC 32.5 g/dL (32.0-36.0); Mean Corpuscular Hemoglobin 28.5 pg (27.0-31.0); Mean Corpuscular Volume 87.8 fl (78.0-98.0); Mean Platelet Volume 7.6 fL (7.4-10.4); Platelet Count 394 10x3/uL (130-400); RBC Distribution Width 12.4 % (11.5-14.5); Red Blood Cell (RBC) Count 3.43 mill/uL (4.20-5.40); White Blood Cell (WBC) Count 6.5 10x3/uL (4.8-10.8)
[2024-03-06] MEDS ORDERED: fentaNYL 50 mcg/mL 1 mL Vial ONE ×2 (15:22→17:36)
[2024-03-06] MEDS ORDERED: Ondansetron PF 4 MG/2 ML Vial ONE ×2 (15:22→17:36)
[2024-03-06 15:30] LABS: ALT (SGPT) 19 U/L (8-55); AST (SGOT) 20 U/L (5-34); Albumin 3.3 g/dL (3.4-4.8); Alkaline Phosphatase 130 U/L (40-110); Anion Gap 16 mmol/L (10-20); BUN (Urea Nitrogen) 26 mg/dL (9.8-20.1); Bilirubin, Total 0.2 mg/dL (0.2-1.2); Calc. Creatinine Clearance 0 mL/min (70-130); Calcium 8.6 mg/dL (7.8-10.44); Carbon Dioxide 20 mmol/L (23-31); Chloride 95 mmol/L (98-107); Estimated GFR 77; Globulin 2.9 g/dL (2.4-3.5); Glucose 97 mg/dL (83-110); Lipase 23 U/L (8-78); Potassium 3.9 mmol/L (3.5-5.1); Protein, Total 6.2 g/dL (5.8-8.1); Sodium 127 mmol/L (136-145)
== END 2024-03-06 17:50 | disposition home or self-care (01) ==
LOC: MADERS 13:35
DX: K50.90 Crohn's disease, unspecified, without complications (principal); I11.0 Hypertensive heart disease with heart failure; I50.9 Heart failure, unspecified; K21.9 Gastro-esophageal reflux disease without esophagitis; F17.210 Nicotine dependence, cigarettes, uncomplicated; Z79.899 Other long term (current) drug therapy
CPT/HCPCS: 36415; 74176; 80053; 83690; 85025; 96374; 96375; 96376; J2405; J3010

== ENCOUNTER 2024-09-21 16:48 | Emergency (ER) | payer MEDICARE ==
[2024-09-21] MEDS ORDERED: Aspirin Chewable 81 MG TAB ONE (16:58)
[2024-09-21] MEDS ORDERED: Sodium Chloride 0.9% 1,000 ML ONE (16:58)
[2024-09-21 17:46] LABS: Bicarbonate (HCO3v) 27.1 mmol/L (22.0-28.0); CO2 Tension (PvCO2) 34.3 mmHg (42.0-51.0); Calcium, Ionized 1.03 mmol/L (1.15-1.33); Chloride 95 mmol/L (98-107); Hemoglobin - Calc 10.9 g/dL (12.0-16.0); Potassium 3.9 mmol/L (3.5-5.1); Sodium 129 mmol/L (138-145); T. Carbon Dioxide 28.1 mmol/L (22.0-28.0); vO2 Saturation-calc 99.7 % (60.0-85.0)
[2024-09-21 17:49] LABS: Hematocrit 31.3 % (36.0-47.0); Hemoglobin 9.8 g/dL (12.0-16.0); Mean Corpuscular HGB CONC 31.2 g/dL (32.0-36.0); Mean Corpuscular Volume 89.7 fl (78.0-98.0); Mean Platelet Volume 6.3 fL (7.4-10.4); Platelet Count 398 10x3/uL (130-400); RBC Distribution Width 12.8 % (11.5-14.5); Red Blood Cell (RBC) Count 3.49 mill/uL (4.20-5.40); White Blood Cell (WBC) Count 5.7 10x3/uL (4.8-10.8)
[2024-09-21 17:52] LABS: ALT (SGPT) 33 U/L (Less than 34); AST (SGOT) 30 U/L (11-34); Albumin 4.6 g/dL (3.1-4.5); Alkaline Phosphatase 142 U/L (40-110); Anion Gap 22 mmol/L (10-20); BUN (Urea Nitrogen) 20 mg/dL (9.8-20.1); Bilirubin, Total 0.2 mg/dL (0.3-1.2); Calc. Creatinine Clearance 0 mL/min (70-130); Calcium 8.9 mg/dL (7.8-10.44); Carbon Dioxide 21 mmol/L (23-31); Chloride 93 mmol/L (98-107); Estimated GFR 70; Globulin 2.8 g/dL (2.4-3.5); Glucose 133 mg/dL (83-110); Potassium 4.1 mmol/L (3.5-5.1); Protein, Total 7.4 g/dL (5.8-8.1); Sodium 132 mmol/L (136-145)
[2024-09-21 18:05] LABS: Troponin I 0.011 ng/mL (< 0.028)
[2024-09-21 18:12] LABS: Lymphocytes 20 % (21-51); MDiff Complete? YES; Monocytes 6 % (0-10); Neutrophil 74 % (42-75); Platelet Adequacy Comment Appears Adequate
== END 2024-09-21 18:39 | disposition home or self-care (01) ==
LOC: MADERS 16:48
DX: F41.0 Panic disorder [episodic paroxysmal anxiety] (principal); R07.89 Other chest pain; J44.9 Chronic obstructive pulmonary disease, unspecified; I11.0 Hypertensive heart disease with heart failure; I50.9 Heart failure, unspecified; F17.210 Nicotine dependence, cigarettes, uncomplicated; Z79.899 Other long term (current) drug therapy; Z79.51 Long term (current) use of inhaled steroids
CPT/HCPCS: 71045; 80053; 82330; 82435; 82803; 84132; 84295; 84484; 85014; 85025; 93005; J7030

== ENCOUNTER 2025-01-15 15:26 | Outpatient (CLI) | payer MEDICARE | END 2025-01-15 15:27 | disposition home or self-care (01) | LOC: MADRAD 15:26 | PROVIDERS: ATTEND Family Medicine | DX: R05.3 Chronic cough (principal); M89.9 Disorder of bone, unspecified | CPT/HCPCS: 71046 ==

== ENCOUNTER 2025-02-03 13:44 | Emergency (ER) | payer MEDICARE ==
[2025-02-03] MEDS ORDERED: Ondansetron PF 4 MG/2 ML Vial ONE (14:15)
[2025-02-03 14:21] LABS: #Basophils 0.1 thou/uL (0.0-0.2); #Eosinophils 0.2 thou/uL (0.0-0.7); #Lymphocytes 1.5 thou/uL (1.20-3.40); #Monocytes 0.7 thou/uL (0.11-0.59); #Neutrophils 4.5 thou/uL (1.40-6.50); %Basophils 1.7 % (0.0-1.0); %Eosinophils 2.9 % (0.0-10.0); %Lymphocytes 21.3 % (21.0-51.0); %Monocytes 10.6 % (0.0-10.0); %Neutrophils 63.6 % (42.0-75.0); Hematocrit 37.2 % (36.0-47.0); Hemoglobin 12.0 g/dL (12.0-16.0); Mean Corpuscular Hemoglobin 26.7 pg (27.0-31.0); Mean Corpuscular Volume 82.9 fl (78.0-98.0); Platelet Count 426 10x3/uL (130-400); Red Blood Cell (RBC) Count 4.49 mill/uL (4.20-5.40); White Blood Cell (WBC) Count 7.0 10x3/uL (4.8-10.8)
[2025-02-03 14:35] LABS: ALT (SGPT) 19 U/L (Less than 34); AST (SGOT) 29 U/L (11-34); Albumin 4.4 g/dL (3.1-4.5); Alkaline Phosphatase 137 U/L (40-110); Anion Gap 19 mmol/L (10-20); BUN (Urea Nitrogen) 15 mg/dL (9.8-20.1); Bilirubin, Total 0.2 mg/dL (0.3-1.2); Calc. Creatinine Clearance 0 mL/min (70-130); Calcium 9.7 mg/dL (7.8-10.44); Carbon Dioxide 22 mmol/L (23-31); Chloride 94 mmol/L (98-107); Globulin 3.6 g/dL (2.4-3.5); Glucose 111 mg/dL (83-110); Lipase 20 U/L (8-78); Magnesium 2.1 mg/dL (1.6-2.6); Potassium 4.5 mmol/L (3.5-5.1); Sodium 130 mmol/L (136-145)
[2025-02-03 14:36] LABS: Troponin I Less than 0.010 ng/mL (< 0.028)
[2025-02-03 15:34] LABS: Glucose, Urine (Dipstick) Negative (Negative); Leukocyte Small (Negative); Protein, Urine (Dipstick) Negative (Neg-Trace); Specific Gravity, Urine Less/Equal 1.005 (1.005-1.030)
[2025-02-03 15:42] LABS: Bacteria/HPF Rare-Few HPF (None Seen); CAUTI Indications for Culture Dysuria,urgency,freq; RBC/HPF 0-3 HPF (0-3)
[2025-02-03 15:44] LABS: Urine Culture Reflex No No
[2025-02-03 16:35] LABS: Critical Call Chem Troponin I 0.010
== END 2025-02-03 16:40 | disposition home or self-care (01) ==
LOC: MADERS 13:44
DX: K86.1 Other chronic pancreatitis (principal); F11.23 Opioid dependence with withdrawal; I11.0 Hypertensive heart disease with heart failure; I50.9 Heart failure, unspecified; J44.9 Chronic obstructive pulmonary disease, unspecified; F17.210 Nicotine dependence, cigarettes, uncomplicated; Z79.899 Other long term (current) drug therapy; Z79.51 Long term (current) use of inhaled steroids; Z79.82 Long term (current) use of aspirin
CPT/HCPCS: 74177; 80053; 81001; 83605; 83690; 83735; 84484; 85025; 93005; 94760; 96374; 96375; 96376; Q9967